=== PATIENT | male | born 1930 | race Caucasian/White ===

== ENCOUNTER → 2016-07-28 | Outpatient (CLI) | payer MEDICARE, BC ==
[2016-07-28 08:46] LABS: Appearance,Urine Clear (Clear); Bilirubin,Urine Negative (Negative); Glucose,Urine (UA) 1+ (Negative); Ketones,Urine Negative (Negative); Leukocyte Esterase,Urine Negative (Negative); Nitrite,Urine Negative (Negative); PH, Urine 5.5 (5.0-8.0); Protein,Urine Negative (Negative); UA Billing (MACRO vs. MICRO) CHEM; Urobilinogen,Urine <2.0 mg/dL (<2.0)
[2016-07-28 08:47] LABS: Basophils % (A) 0 %; CH 31.6; CHCM 33.6; Eosinophils # (A) 0.2 k/uL (0-0.7); Eosinophils % (A) 3 %; HCT 45.4 % (39.0-53.0); HDW 2.93; HGB 14.8 gm/dL (13.0-17.5); Luc # (Auto) 0.18; Luc % (Auto) 2; Lymphocytes # (A) 1.4 k/uL (1.0-4.8); Lymphocytes % (A) 18 %; MCH 30.8 pg (25.0-35.0); MCHC 32.5 g/dL (31.0-37.0); MCV 94.7 fL (80.0-100.0); Mean Platelet Volume 7.7; Monocytes # (A) 0.4 k/uL (0-1.0); Monocytes % (A) 5 %; Neutrophils # (A) 5.3 k/uL (1.3-7.7); Neutrophils % (A) 71 %; RDW 13.6 % (11.5-15.5); WBC 7.5 k/uL (3.8-10.6); WBC (Perox) 7.47
[2016-07-28 12:43] LABS: Anion Gap 9 mmol/L; Blood Urea Nitrogen 22 mg/dL (9-20); Calcium 9.2 mg/dL (8.4-10.2); Carbon Dioxide 30 mmol/L (22-30); Chloride 104 mmol/L (98-107); Glucose 181 mg/dL (74-99); Iron 57 ug/dL (49-181); Magnesium 2.1 mg/dL (1.6-2.3); Non-African American GFR(MDRD) 53 (>60 ml/min/1.73 sqM); Phosphorous 3.4 mg/dL (2.5-4.5); Potassium 4.6 mmol/L (3.5-5.1); Sodium 143 mmol/L (137-145); Uric Acid 7.3 mg/dL (3.5-8.5)
[2016-07-28 12:52] LABS: % Iron Saturation 21.3 % (20-50); Total Iron Binding Capacity 268 ug/dL (261-462)
== END | disposition home or self-care (01) ==
LOC: LABWHC1 07:55
PROVIDERS: ATTEND Internal Medicine Nephrology
DX: N18.3 Chronic kidney disease, stage 3 (moderate) (principal); D64.9 Anemia, unspecified; E55.9 Vitamin D deficiency, unspecified; E21.3 Hyperparathyroidism, unspecified; E83.39 Other disorders of phosphorus metabolism; M10.9 Gout, unspecified; R80.9 Proteinuria, unspecified
CPT/HCPCS: 36415; 80048; 81003; 82306; 82728; 83540; 83550; 83735; 83970; 84100; 84550; 85025

== ENCOUNTER → 2016-11-23 | Outpatient (CLI) | payer MEDICARE, BC ==
[2016-11-23 09:00] LABS: Appearance,Urine Clear (Clear); Bilirubin,Urine Negative (Negative); Glucose,Urine (UA) Negative (Negative); Ketones,Urine Negative (Negative); Leukocyte Esterase,Urine Negative (Negative); Nitrite,Urine Negative (Negative); Protein,Urine Negative (Negative); Specific Gravity,Urine 1.011 (1.001-1.035); UA Billing (MACRO vs. MICRO) CHEM; Urobilinogen,Urine <2.0 mg/dL (<2.0)
[2016-11-23 09:06] LABS: Basophils % (A) 0 %; CHCM 34.7; Eosinophils # (A) 0.3 k/uL (0-0.7); Eosinophils % (A) 4 %; HCT 43.6 % (39.0-53.0); HDW 2.92; HGB 14.5 gm/dL (13.0-17.5); Luc # (Auto) 0.18; Luc % (Auto) 3; Lymphocytes # (A) 1.2 k/uL (1.0-4.8); Lymphocytes % (A) 19 %; MCH 30.9 pg (25.0-35.0); MCHC 33.3 g/dL (31.0-37.0); MCV 92.7 fL (80.0-100.0); Mean Platelet Volume 7.4; Monocytes # (A) 0.4 k/uL (0-1.0); Monocytes % (A) 6 %; Neutrophils # (A) 4.4 k/uL (1.3-7.7); Neutrophils % (A) 68 %; RDW 13.9 % (11.5-15.5); WBC 6.4 k/uL (3.8-10.6); WBC (Perox) 6.61
[2016-11-23 09:18] LABS: Anion Gap 9 mmol/L; Blood Urea Nitrogen 23 mg/dL (9-20); Calcium 9.1 mg/dL (8.4-10.2); Carbon Dioxide 28 mmol/L (22-30); Chloride 108 mmol/L (98-107); Glucose 125 mg/dL (74-99); Iron 50 ug/dL (49-181); Magnesium 2.2 mg/dL (1.6-2.3); Non-African American GFR(MDRD) 53 (>60 ml/min/1.73 sqM); Phosphorous 3.7 mg/dL (2.5-4.5); Potassium 4.5 mmol/L (3.5-5.1); Sodium 145 mmol/L (137-145)
[2016-11-23 09:30] LABS: % Iron Saturation 19.3 % (20-50); Total Iron Binding Capacity 259 ug/dL (261-462)
[2016-11-23 10:31] LABS: Hepatitis B Surface Ag Index 0.05
[2016-11-23 10:37] LABS: Hepatitis B Core IgM Index 0.01
[2016-11-23 10:48] LABS: Hepatitis C Virus IgG Ab Negative (Negative); Hepatitis C Virus IgG Index 0.05
[2016-11-23 16:25] LABS: ANA w/Reflex to Titer NEGATIVE (NEGATIVE)
[2016-11-24 05:31] LABS: Complement Total (CH50) 205 CAE (54-144)
[2016-11-24 12:22] LABS: Free Kappa Lt Chain Qnt, Serum 2.35 mg/dL (0.33 - 1.94); Kappa/Lambda Light Chain Ratio 0.31 (0.26 - 1.65)
[2016-11-24 14:50] LABS: C-ANCA <1:20 Titer (<1:20); P-ANCA <1:20 Titer (<1:20)
[2016-11-25 16:11] LABS: Mis test requested (Non-blood) Ur Prot Electrophor
== END | disposition home or self-care (01) ==
LOC: LABWHC1 08:13
PROVIDERS: ATTEND Nurse Practitioner Family
DX: N18.3 Chronic kidney disease, stage 3 (moderate) (principal); R80.9 Proteinuria, unspecified; M10.9 Gout, unspecified; N39.0 Urinary tract infection, site not specified; R53.83 Other fatigue; D64.9 Anemia, unspecified; E55.9 Vitamin D deficiency, unspecified; E21.3 Hyperparathyroidism, unspecified
CPT/HCPCS: 36415; 80048; 80074; 81003; 81050; 82306; 82728; 83516; 83540; 83550; 83735; 83883; 83970; 84100; 84156; 84166; 84550; 85025; 86038; 86160; 86162; 86225; 86255; 86334

== ENCOUNTER → 2017-01-31 | Outpatient (CLI) | payer MEDICARE, BC ==
--- NOTE | 2017-01-31 12:22 | XR ---
EXAMINATION TYPE: XR bone survey complete DATE OF EXAM: 01/31/2017 COMPARISON: Chest x-ray 05/29/2015 HISTORY: Monoclonal gammopathy, Z 71.3 Frontal views of the proximal upper and lower extremities, 2 views of the calvarium, frontal view of the chest, 2 views of the spine, frontal view of the pelvis submitted on a total of 16 images Extensive degenerative disc changes are present within the lumbar spine, vacuum phenomenon present at L4-5 and L2-3 with endplate sclerosis especially at L2-3, dextroscoliosis centered at L2-3. Bone min eralization is reduced. Postop changes noted to the proximal left tibia, there are vascular calcifica tions noted incidentally, osteoarthritic changes are present within the knees. High riding left shoul miguel angel suggest chronic rotator cuff tear. Pacemaker is in place. There is a hiatal hernia, retrocardiac air-fluid level is noted. Spinal curvature noted. Pacemaker leads within the right atrium and ventric le. There are atherosclerotic calcifications in the distribution of the carotid arteries. Degenerativ e disc changes are also present within the cervical spine, anterolisthesis grade 1 C4-5. Cardiac enla rgement may be due to rotation. No punched-out lesions to suggest multiple myeloma. IMPRESSION: Bone survey shows osteopenia but no punched-out lesions to suggest multiple myeloma are e vident. Additional findings above.
== END | disposition home or self-care (01) ==
LOC: RADXRMAIN 08:17
PROVIDERS: ATTEND Internal Medicine Hematology & Oncology
DX: M85.80 Other specified disorders of bone density and structure, unspecified site (principal); D47.2 Monoclonal gammopathy; Z71.3 Dietary counseling and surveillance
CPT/HCPCS: 77075

== ENCOUNTER → 2017-06-07 | Outpatient (CLI) | payer MEDICARE, BC ==
--- NOTE | 2017-06-07 14:04 | NM ---
EXAMINATION TYPE: NM bone scan whole body DATE OF EXAM: 06/07/2017 COMPARISON: Bone survey 01/31/2017 HISTORY: Prostate cancer Delayed whole-body scanning was performed following the injection of 26.2 mCi Tc 99m MDP. Images acq uired 3 hours post injection. FINDINGS: Scoliotic curvature in the lumbar spine is noted as on plain film, uptake at the disc space of L2-3 l ikely due to degenerative change as L4-5. Soft tissue uptake is within normal limits. Uptake within t he wrists, knees, feet, shoulders is likely degenerative. Large amount of bladder uptake may be due t o outlet obstruction. Small focus of mild uptake of the left frontal calvarium is indeterminate. IMPRESSION: Findings thought likely to be degenerative. Indeterminate focus of uptake left frontal calvarium, fol low-up suggested. Additional findings above.
== END | disposition home or self-care (01) ==
LOC: RADNMMAIN 09:58
PROVIDERS: ATTEND Urology
DX: C61 Malignant neoplasm of prostate (principal); Z88.1 Allergy status to other antibiotic agents; Z88.8 Allergy status to other drugs, medicaments and biological substances
CPT/HCPCS: 78306; A9503

== ENCOUNTER → 2017-10-24 | Outpatient (CLI) | payer MEDICARE, BC ==
[2017-10-24 09:38] LABS: Calcium 9.1 mg/dL (8.4-10.2); Potassium 4.2 mmol/L (3.5-5.1)
== END | disposition home or self-care (01) ==
LOC: LABWHC1 08:46
PROVIDERS: ATTEND Nurse Practitioner Family
DX: N18.3 Chronic kidney disease, stage 3 (moderate) (principal)
CPT/HCPCS: 36415; 80048

== ENCOUNTER → 2017-12-13 | Outpatient (CLI) | payer MEDICARE, BC ==
[2017-12-13 08:42] LABS: Basophils % (A) 0 %; Eosinophils # (A) 0.3 k/uL (0-0.7); Eosinophils % (A) 4 %; HCT 41.4 % (39.0-53.0); Lymphocytes # (A) 1.2 k/uL (1.0-4.8); Lymphocytes % (A) 17 %; MCH 31.7 pg (25.0-35.0); MCHC 33.7 g/dL (31.0-37.0); MCV 93.9 fL (80.0-100.0); Mean Platelet Volume 8.2; Monocytes # (A) 0.4 k/uL (0-1.0); Monocytes % (A) 5 %; Neutrophils # (A) 4.9 k/uL (1.3-7.7); Neutrophils % (A) 71 %; Platelet Count 131 k/uL (150-450); RBC 4.41 m/uL (4.30-5.90); RDW 14.5 % (11.5-15.5); WBC 6.9 k/uL (3.8-10.6)
[2017-12-13 09:02] LABS: Appearance,Urine Clear (Clear); Bilirubin,Urine Negative (Negative); Blood,Urine Negative (Negative); Color,Urine Yellow; Glucose,Urine (UA) Negative (Negative); Hyaline Casts,Urine 1 /lpf (0-2); Ketones,Urine Negative (Negative); Leukocyte Esterase,Urine Trace (Negative); Mucus,Urine Rare /hpf; Nitrite,Urine Negative (Negative); PH, Urine 5.5 (5.0-8.0); Protein,Urine Negative (Negative); Specific Gravity,Urine 1.012 (1.001-1.035); Squamous Epithelial Cell,Urine <1 /hpf (0-4); Urobilinogen,Urine <2.0 mg/dL (<2.0); WBC,Urine 1 /hpf (0-5)
[2017-12-13 09:28] LABS: Calcium 8.9 mg/dL (8.4-10.2); Magnesium 2.2 mg/dL (1.6-2.3); Potassium 4.7 mmol/L (3.5-5.1); Uric Acid 7.9 mg/dL (3.5-8.5)
[2017-12-13 17:20] LABS: Iron Saturation 14.83 (15.00-50.00)
[2017-12-13 18:30] LABS: Parathyroid Hormone Intact 111.4 pg/mL (14.0-72.0)
== END | disposition home or self-care (01) ==
LOC: LABWHC1 08:02
PROVIDERS: ATTEND Nurse Practitioner Family
DX: R53.83 Other fatigue (principal); N18.3 Chronic kidney disease, stage 3 (moderate); E55.9 Vitamin D deficiency, unspecified; D63.1 Anemia in chronic kidney disease; E11.22 Type 2 diabetes mellitus with diabetic chronic kidney disease; N39.0 Urinary tract infection, site not specified; M10.9 Gout, unspecified; N25.81 Secondary hyperparathyroidism of renal origin
CPT/HCPCS: 36415; 80048; 81001; 82728; 83540; 83550; 83735; 83970; 84100; 84550; 85025

== ENCOUNTER → 2018-01-05 | Outpatient (CLI) | payer MEDICARE, BC ==
--- NOTE | 2018-01-05 11:38 | US ---
EXAMINATION TYPE: US kidneys/renal and bladder DATE OF EXAM: 01/05/2018 COMPARISON: NONE CLINICAL HISTORY: N18.3 Chronic kidney disease stage 3. Pt age 87, large body habitus , bladder is so overly distended extends to umbilical no color flow not related to aorta EXAM MEASUREMENTS: Right Kidney: 9.2 x 4.2 x 5.3 cm Left Kidney: 10.4 x 5.5 x 4.7 cm Post Void Residual Volume: 939 mL Right Kidney: thin cortex, Left Kidney: thin cortex, lower pole cyst 0.4 x 0.6 x 0.5 Bladder: overly distended, even after post void Bilateral Jets seen: no Normal Post Void Residual: no There is no evidence for hydronephrosis at this point in time. No nephrolithiasis is seen. No solid masses are identified. The urinary bladder is anechoic. Bilateral ureteral jets are seen. IMPRESSION: Cortical thinning with small cyst left kidney.
== END | disposition home or self-care (01) ==
LOC: RADUSWWP 10:18
PROVIDERS: ATTEND Internal Medicine Nephrology
DX: N28.1 Cyst of kidney, acquired (principal); N18.3 Chronic kidney disease, stage 3 (moderate)
CPT/HCPCS: 76770

== ENCOUNTER → 2018-05-17 | Outpatient (CLI) | payer MEDICARE, BC ==
[2018-05-17 16:06] LABS: Albumin 3.7 g/dL (3.80-4.90); Albumin/Globulin Ratio 2.85 (1.20-2.10); Anion Gap 6.6 mmol/L (4.00-12.00); Calcium 8.9 mg/dL (8.7-10.3); Carbon Dioxide 28.4 mmol/L (21.6-31.8); Globulin 1.3 g/dL (2.1-3.7); Potassium 4.6 mmol/L (3.5-5.5); Total Bilirubin 0.4 mg/dL (0.2-1.2)
== END ==
LOC: LABWHC1 09:52
PROVIDERS: ATTEND Internal Medicine
DX: E11.9 Type 2 diabetes mellitus without complications (principal); I10 Essential (primary) hypertension; E78.5 Hyperlipidemia, unspecified
CPT/HCPCS: 36415; 80053; 80061

== ENCOUNTER 2018-07-31 16:12 | Emergency (ER) | payer MEDICARE, BC ==
[2018-07-31 16:23] VITALS: RESP 18
[2018-07-31] MEDS ORDERED: LIDOCAINE 1% INJ 10MG/ML (20 ML MDV) SQ STA (17:18)
[2018-07-31] MEDS ORDERED: DIPH,PERTUS(ACELL)TETVAC-LF 0.5 ML VIAL IM ONE (17:18)
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
--- NOTE | 2018-07-31 18:05 | XR ---
Left knee 4 views. History pain. Comparison 08/30/2012. FINDINGS: There are 2 screws fixing the proximal tibia. I see no fracture nor dislocation. There is spurring on the patella. There is small knee joint effusion. There is mild spurring of the femoral and tibial co ndyles. IMPRESSION: Mild degenerative hypertrophic changes. No fracture seen. No change compared to old exam.
--- NOTE | 2018-07-31 18:11 | CT ---
EXAMINATION TYPE: CT brain stephy jimenez con DATE OF EXAM: 07/31/2018 COMPARISON: 08/18/2012 HISTORY: Fall injury, facial lacerations CT DLP: 1030 mGycm Automated exposure control for dose reduction was used. TECHNIQUE: CT scan of the head and cervical spine are performed without contrast. FINDINGS: There is cerebral cortical atrophy. There is no mass effect nor midline shift. There is n o sign of intracranial hemorrhage. The calvarium is intact. There is extensive mucosal thickening in the ethmoid and sphenoid sinuses. There is mucus retention cysts in the maxillary sinuses. Cervical vertebra show some straightening. There is degenerative disc space narrowing at C5-6 C6-7 wi th spur formation. The skull base is intact. IMPRESSION: Cerebral atrophy. No acute intracranial abnormality. Sinusitis. Brain is unchanged compared to old ex am. Sinusitis appears increased. Spondylotic changes in the cervical spine. No fracture. No change.
--- NOTE | 2018-07-31 18:18 | CT ---
EXAMINATION TYPE: CT orbits wo con DATE OF EXAM: 07/31/2018 COMPARISON: None HISTORY: Facial lacerations, fall injury CT DLP: 1030 mGycm Automated exposure control for dose reduction was used. FINDINGS: The orbital margins are intact. There is no evidence of a blowout fracture. There is moderate mucosal thickening in the ethmoid and sphenoid sinuses. There is mucous retention cysts and fluid in the max illary sinuses. Zygomatic arches are intact. There is no evidence of retro-orbital mass. There is sof t tissue swelling anterior to the left orbit and left zygoma. The zygomatic arches are intact. There is nondisplaced fracture of the nasal bone. IMPRESSION: THERE IS ANTERIOR LEFT SIDE SOFT TISSUE SWELLING AT THE ZYGOMA AND MAXILLA AND ORBIT. NASAL BONE FRAC TURE. INCREASED DENSITY IN THE NASOPHARYNX CONSISTENT WITH DEBRIS AND BLOOD CLOT. THERE IS EVIDENCE O F PRE-EXISTING SINUSITIS. NO FRACTURE SEEN OF THE ORBITS AND MAXILLA.
[2018-07-31 19:54] VITALS: BP 136/74; PULSE 81; TEMP 98.5
--- NOTE | 2018-08-02 04:18 | CDI ---
Documentation Clarification OP Dear Juan Miguel HOLM, PAC Please provide laceration location & length. Thank you, Stephen Guerrero [employer] If you have any questions, please contact [employer] at [phone] [facility]
--- NOTE | 2018-08-14 21:39 | ED ---
Disposition Clinical Impression: Fall, Laceration, Nasal bone fracture Disposition: HOME SELF-CARE Condition: Stable Instructions (If sedation given, give patient instructions): Fall Prevention for Older Adults (ED) Additional Instructions: Patient to adhere to previously discussed treatment plan and will take medication(s) as directed. Patient to follow up with PCP in 1-2 days. Patient to return to ED if symptoms do not improve. Please return for suture removal: Hand: 7-10 days Face: 5 days Chest/abdomen: 12-14 days Extremities: 7-10 days Scalp: 7 days Eyebrow: 5-7 days Foot/sole: 12-14 days Please monitor for signs and symptoms of infection including: redness, warmth, drainage, discharge. Please return to ED if these signs or symptoms occur, new signs or symptoms develop or if condition worsens in anyway. Prescriptions: Cephalexin [Keflex] 500 mg PO Q6HR 3 Days #12 cap Is patient prescribed a controlled substance at d/c from ED?: No Referrals: Nicole Cantrell MD [Primary Care Provider] - 1-2 days Rafy Figueroa MD [STAFF PHYSICIAN] - 1-2 days Procedures - Laceration Laceration #1 Consent Obtained: verbal consent Indication: laceration Site: other (L orbit) Size (cm): 5 Description: linear Depth: simple, single layer Anesthetic Used: lidocaine 1% Anesthesia Technique: local infiltration Amount (mls): 6 Pre-repair: wound explored, irrigated extensively (1L NS ) Type of Sutures: nylon Size of Sutures: 5-0 Number of Sutures: 8 Patient Tolerated Procedure: well, no complications
== END 2018-07-31 20:06 | disposition home or self-care (01) ==
LOC: EC 16:12
DX: S02.2XXA Fracture of nasal bones, initial encounter for closed fracture (principal); S05.42XA Penetrating wound of orbit with or without foreign body, left eye, initial encounter; M25.462 Effusion, left knee; K21.9 Gastro-esophageal reflux disease without esophagitis; E78.5 Hyperlipidemia, unspecified; E11.22 Type 2 diabetes mellitus with diabetic chronic kidney disease; N18.3 Chronic kidney disease, stage 3 (moderate); N42.9 Disorder of prostate, unspecified; G47.30 Sleep apnea, unspecified; Z87.39 Personal history of other diseases of the musculoskeletal system and connective tissue; Z95.0 Presence of cardiac pacemaker; Z98.49 Cataract extraction status, unspecified eye; Z79.4 Long term (current) use of insulin; Z79.890 Hormone replacement therapy; Z79.899 Other long term (current) drug therapy; Z91.018 Allergy to other foods; Z88.6 Allergy status to analgesic agent; Z88.1 Allergy status to other antibiotic agents; Z23 Encounter for immunization; W00.0XXA Fall on same level due to ice and snow, initial encounter; Y92.014 Private driveway to single-family (private) house as the place of occurrence of the external cause; Y93.29 Activity, other involving ice and snow
CPT/HCPCS: 99284; 12013; 90471; 73564; 72125; 70450; 70480; 90715; J2001

== ENCOUNTER → 2018-08-10 | Outpatient (CLI) | payer MEDICARE, BC ==
[2018-08-10 17:07] LABS: Albumin 3.5 g/dL (3.80-4.90); Albumin/Globulin Ratio 2.33 (1.60-3.17); Anion Gap 10.7 mmol/L (4.00-12.00); Calcium 8.9 mg/dL (8.7-10.3); Carbon Dioxide 25.3 mmol/L (21.6-31.8); Globulin 1.5 g/dL (1.6-3.3); LDL Cholesterol,Calculated 81.4 mg/dL (0.0-131.0); Potassium 4.7 mmol/L (3.5-5.5); Total Bilirubin 0.5 mg/dL (0.2-1.2); VLDL Calculation 19.6 mg/dL (5.00-40.00)
[2018-08-10 19:14] LABS: Hemoglobin A1C 6.3 % (4.0-6.0)
== END | disposition home or self-care (01) ==
LOC: LABWHC1 08:30
PROVIDERS: ATTEND Internal Medicine
DX: E11.9 Type 2 diabetes mellitus without complications (principal); I12.9 Hypertensive chronic kidney disease with stage 1 through stage 4 chronic kidney disease, or unspecified chronic kidney disease; N18.9 Chronic kidney disease, unspecified; E78.5 Hyperlipidemia, unspecified
CPT/HCPCS: 36415; 80053; 80061; 83036

== ENCOUNTER → 2020-05-07 | Outpatient (CLI) | payer MEDICARE, BC ==
[2020-05-07 09:17] LABS: Basophils % (A) 0 %; Eosinophils # (A) 0.2 k/uL (0-0.7); Eosinophils % (A) 4 %; HCT 38.9 % (39.0-53.0); HGB 12.7 gm/dL (13.0-17.5); Lymphocytes # (A) 1.2 k/uL (1.0-4.8); Lymphocytes % (A) 22 %; MCH 30.7 pg (25.0-35.0); MCHC 32.5 g/dL (31.0-37.0); MCV 94.4 fL (80.0-100.0); Mean Platelet Volume 8.8; Monocytes # (A) 0.3 k/uL (0-1.0); Monocytes % (A) 6 %; Neutrophils # (A) 3.8 k/uL (1.3-7.7); Neutrophils % (A) 66 %; Platelet Count 139 k/uL (150-450); RBC 4.12 m/uL (4.30-5.90); RDW 13.8 % (11.5-15.5); WBC 5.7 k/uL (3.8-10.6)
[2020-05-07 15:32] LABS: African American GFR (CKD) 56.9 (60.0-200.0); Albumin 3.7 g/dL (3.80-4.90); Albumin/Globulin Ratio 2.31 (1.60-3.17); Anion Gap 8.3 mmol/L (4.00-12.00); BUN/Creat Ratio 23.08 Ratio (12.00-20.00); Calcium 9.1 mg/dL (8.7-10.3); Carbon Dioxide 26.7 mmol/L (21.6-31.8); Chol/HDL Ratio 3.73; Globulin 1.6 g/dL (1.6-3.3); LDL Cholesterol,Calculated 81.6 mg/dL (0.0-131.0); Non-African American GFR(CKD) 49.1 (60.0-200.0); Potassium 4.5 mmol/L (3.5-5.5); Total Bilirubin 0.4 mg/dL (0.3-1.2); Total Protein 5.3 g/dL (6.2-8.2); VLDL Calculation 27.4 mg/dL (5.00-40.00)
[2020-05-07 19:26] LABS: Hemoglobin A1C 6.1 % (4.0-6.0)
== END | disposition home or self-care (01) ==
LOC: LABWHC1 07:44
PROVIDERS: ATTEND Internal Medicine
DX: E11.9 Type 2 diabetes mellitus without complications (principal); I12.9 Hypertensive chronic kidney disease with stage 1 through stage 4 chronic kidney disease, or unspecified chronic kidney disease; N18.9 Chronic kidney disease, unspecified
CPT/HCPCS: 36415; 80053; 80061; 83036; 85025

== ENCOUNTER → 2020-05-30 | Outpatient (CLI) | payer MEDICARE, BC ==
[2020-05-31 00:40] LABS: Prostate Specific Antigen 0.2 ng/mL (0.0-6.5)
== END | disposition home or self-care (01) ==
LOC: LABWHC1 15:28
PROVIDERS: ATTEND Urology
DX: C61 Malignant neoplasm of prostate (principal)
CPT/HCPCS: 36415; 84153; 84403

== ENCOUNTER 2020-06-14 15:03 | Observation (INO) | payer MEDICARE, BC ==
[2020-06-14] MEDS ORDERED: SODIUM CHLORIDE 0.9% 500 ML 500 ML IV STA (15:24)
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
[2020-06-14 15:48] LABS: Basophils # (A) 0.1 k/uL (0-0.2); Basophils % (A) 1 %; Eosinophils # (A) 0.2 k/uL (0-0.7); Eosinophils % (A) 3 %; HCT 38.3 % (39.0-53.0); HGB 13.3 gm/dL (13.0-17.5); Lymphocytes # (A) 1.6 k/uL (1.0-4.8); Lymphocytes % (A) 24 %; MCH 31.9 pg (25.0-35.0); MCHC 34.6 g/dL (31.0-37.0); MCV 92.3 fL (80.0-100.0); Mean Platelet Volume 8.2; Monocytes # (A) 0.3 k/uL (0-1.0); Monocytes % (A) 5 %; Neutrophils # (A) 4.1 k/uL (1.3-7.7); Neutrophils % (A) 64 %; Platelet Count 139 k/uL (150-450); RBC 4.15 m/uL (4.30-5.90); RDW 13.1 % (11.5-15.5); WBC 6.5 k/uL (3.8-10.6)
--- NOTE | 2020-06-14 15:54 | XR ---
EXAMINATION TYPE: XR chest 2V DATE OF EXAM: 06/14/2020 COMPARISON: 01/03/2018 HISTORY: Weakness TECHNIQUE: FINDINGS: There is poor inspiration with coarse interstitial density in the lower lobes. There is no obvious heart failure. There is left axillary pacemaker. There are chest leads. Bony thorax appears i ntact. There is some malalignment of the right AC joint that could relate to an old injury. IMPRESSION: Coarse density and subsegmental atelectasis at the lung bases. Hiatal hernia. Cardiomegal y. No obvious heart failure. Chest not significantly different than old exam.
[2020-06-14 15:57] LABS: INR 0.9 (<1.2); Partial Thromboplastin Time 22.2 sec (22.0-30.0); Prothrombin Time 9.8 sec (9.0-12.0)
[2020-06-14 16:02] LABS: Albumin 3.5 g/dL (3.5-5.0); Calcium 9.2 mg/dL (8.4-10.2); Magnesium 2.4 mg/dL (1.6-2.3); Potassium 4.5 mmol/L (3.5-5.1); Total Bilirubin 0.5 mg/dL (0.2-1.3); Total Protein 5.8 g/dL (6.3-8.2)
--- NOTE | 2020-06-14 16:25 | CT ---
EXAMINATION TYPE: CT brain wo con DATE OF EXAM: 06/14/2020 COMPARISON: 07/31/2018 HISTORY: weakness CT DLP: 1047.4 mGycm Automated exposure control for dose reduction was used. There is cerebral atrophy. There is no mass effect nor midline shift. There is no sign of intracrania l hemorrhage. Calvarium is intact. The skull base is intact. There is minimal mucosal thickening in t he ethmoid sinuses. There is mucosal thickening with mucus retention cysts in the maxillary sinuses. There is normal aeration of the temporal bones. IMPRESSION: Cerebral atrophy. No acute intracranial abnormality. Sinusitis. This is not changed compared to old exam.
[2020-06-14] MEDS ORDERED: ASPIRIN 325 MG TAB PO STA (16:32)
[2020-06-14 16:40] LABS: Appearance,Urine Clear (Clear); Bacteria,Urine Rare /hpf; Bilirubin,Urine Negative (Negative); Blood,Urine Negative (Negative); Color,Urine Light Yellow; Glucose,Urine (UA) Negative (Negative); Ketones,Urine Negative (Negative); Leukocyte Esterase,Urine Trace (Negative); Mucus,Urine Rare /hpf; Nitrite,Urine Negative (Negative); PH, Urine 6.5 (5.0-8.0); Protein,Urine Negative (Negative); RBC,Urine <1 /hpf (0-5); Specific Gravity,Urine 1.011 (1.001-1.035); Squamous Epithelial Cell,Urine <1 /hpf (0-4); Urobilinogen,Urine <2.0 mg/dL (<2.0); WBC,Urine 1 /hpf (0-5)
[2020-06-14] MEDS ORDERED: ACETAMINOPHEN TAB 325 MG TAB PO PRN (17:06)
[2020-06-14] MEDS ORDERED: NALOXONE 0.4 MG/ML 1 ML VIAL IV PRN (17:06)
[2020-06-14] MEDS ORDERED: ONDANSETRON 4 MG/2 ML VIAL IVP PRN (17:06)
[2020-06-14] MEDS: SODIUM CHLORIDE 0.9% 1,000 ML IV SCH (17:22)
[2020-06-14] MEDS: FUROSEMIDE 40 MG TAB PO SCH (17:22)
--- NOTE | 2020-06-14 18:11 | US ---
EXAMINATION TYPE: US carotid duplex BILAT DATE OF EXAM: 06/14/2020 COMPARISON: NONE CLINICAL HISTORY: tia. Difficult exam as patient had a hard time turning his head to the side and pat ient heavy breathing. Tortuous vessels EXAM MEASUREMENTS: RIGHT: Peak Systolic Velocity (PSV) cm/sec ----- Right CCA: 52.0 ----- Right ICA: 63.8 ----- Right ECA: 69.0 ICA/CCA ratio: 1.2 RIGHT: End Diastole cm/sec ----- Right CCA: 12.9 ----- Right ICA: 16.8 ----- Right ECA: 6.4 LEFT: Peak Systolic Velocity (PSV) cm/sec ----- Left CCA: 45.5 ----- Left ICA: 55.6 ----- Left ECA: 62.8 ICA/CCA ratio: 1.2 LEFT: End Diastole cm/sec ----- Left CCA: 12.9 ----- Left ICA: 13.6 ----- Left ECA: 0.0 VERTEBRALS (direction of flow): Right Vertebral: Antegrade Left Vertebral: Antegrade Rhythm: Normal Moderate/severe amount of plaque visualized bilaterally. No elevated velocities. Tortuous vessels IMPRESSION: There is antegrade flow in the vertebral arteries. The images and measurements suggest up to 50% sten osis in both internal carotid arteries. Criteria for Assigning % of Stenosis / Diameter reduction (Estimation based on the indirect measurements of the internal carotid artery velocities (ICA PSV). 1. Normal (no stenosis)=ICA PSV < 125 cm/s: ratio < 2.0: ICA EDV<40 cm/s. 2. Less than 50% stenosis=ICA PSV < 125 cm/s: ratio < 2.0: ICA EDV<40 cm/s. 3. 50 to 69% stenosis=ICA PSV of 125 to 230 cm/s: ration 2.0 ? 4.0: ICA EDV 40-100 cm/s. 4. Greater than 70% stenosis to near occlusion= ICA PSV > 230 cm/s: ratio > 4.0: ICA EDV > 100 cm/s. 5. Near occlusion= ICA PSV velocities may be low or undetectable: variable ratio and ICA EDV. 6. Total occlusion=unable to detect flow.
[2020-06-14 19:49] LABS: Glucose,Whole Blood 230 mg/dL (75-99)
[2020-06-14] MEDS: guaiFENesin 600 MG TABLET.ER PO SCH (20:55)
[2020-06-14] MEDS: POTASSIUM CHLORIDE ER 20 MEQ TAB.ER PO SCH (20:55)
[2020-06-14] MEDS: ATORVASTATIN 10 MG TAB PO SCH (20:55)
[2020-06-14] MEDS: INSULIN ASPART (NovoLOG) 100 UNIT/ML VIAL SQ SCH (20:55)
[2020-06-15 06:10] LABS: Glucose,Whole Blood 120 mg/dL (75-99)
[2020-06-15] MEDS: INSULIN ASPART (NovoLOG) 100 UNIT/ML VIAL SQ SCH ×4 (06:54→22:19)
[2020-06-15] MEDS: SODIUM CHLORIDE 0.9% 1,000 ML IV SCH ×2 (06:55→19:30)
[2020-06-15] MEDS: DOXAZOSIN 4 MG TAB PO SCH (08:28)
[2020-06-15] MEDS: METOPROLOL SUCCINATE (ER) 25 MG TAB.ER.24H PO SCH (08:28)
[2020-06-15] MEDS: guaiFENesin 600 MG TABLET.ER PO SCH ×2 (08:28→22:18)
[2020-06-15] MEDS: ASPIRIN 325 MG TAB PO SCH (08:28)
[2020-06-15] MEDS: LORATADINE 10 MG TAB PO SCH (08:28)
[2020-06-15] MEDS: POTASSIUM CHLORIDE ER 20 MEQ TAB.ER PO SCH ×2 (08:28→22:18)
[2020-06-15] MEDS: FUROSEMIDE 40 MG TAB PO SCH (08:28)
[2020-06-15] MEDS: VIT A,C & E-LUTEIN-MINERALS 1 EACH TAB PO SCH (08:29)
[2020-06-15] MEDS: BICALUTAMIDE 50 MG TAB PO SCH (08:29)
[2020-06-15] MEDS: INSULN ASP PRT/INSULIN ASPART 100 UNIT/ML 10 ML VIAL SQ SCH ×2 (08:39→17:17)
[2020-06-15 11:18] LABS: Glucose,Whole Blood 109 mg/dL (75-99)
[2020-06-15 16:54] LABS: Glucose,Whole Blood 109 mg/dL (75-99)
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
[2020-06-15] MEDS: ATORVASTATIN 10 MG TAB PO SCH (22:18)
[2020-06-15 22:20] LABS: Glucose,Whole Blood 109 mg/dL (75-99)
[2020-06-16 06:29] LABS: Glucose,Whole Blood 105 mg/dL (75-99)
[2020-06-16] MEDS: INSULIN ASPART (NovoLOG) 100 UNIT/ML VIAL SQ SCH ×3 (06:45→17:14)
[2020-06-16 07:06] LABS: Glucose,Whole Blood 102 mg/dL (75-99)
[2020-06-16] MEDS: ASPIRIN 325 MG TAB PO SCH (08:07)
[2020-06-16] MEDS: LORATADINE 10 MG TAB PO SCH (08:07)
[2020-06-16] MEDS: POTASSIUM CHLORIDE ER 20 MEQ TAB.ER PO SCH (08:07)
[2020-06-16] MEDS: DOXAZOSIN 4 MG TAB PO SCH (08:07)
[2020-06-16] MEDS: VIT A,C & E-LUTEIN-MINERALS 1 EACH TAB PO SCH (08:07)
[2020-06-16] MEDS: guaiFENesin 600 MG TABLET.ER PO SCH (08:07)
[2020-06-16] MEDS: METOPROLOL SUCCINATE (ER) 25 MG TAB.ER.24H PO SCH (08:07)
[2020-06-16] MEDS: BICALUTAMIDE 50 MG TAB PO SCH (08:07)
[2020-06-16] MEDS: INSULN ASP PRT/INSULIN ASPART 100 UNIT/ML 10 ML VIAL SQ SCH ×2 (08:08→17:14)
[2020-06-16 08:11] LABS: Basophils % (A) 0 %; Eosinophils # (A) 0.3 k/uL (0-0.7); Eosinophils % (A) 4 %; HGB 12.8 gm/dL (13.0-17.5); Lymphocytes # (A) 1.2 k/uL (1.0-4.8); Lymphocytes % (A) 15 %; MCH 31.7 pg (25.0-35.0); MCHC 33.7 g/dL (31.0-37.0); MCV 94.1 fL (80.0-100.0); Mean Platelet Volume 8.1; Monocytes # (A) 0.4 k/uL (0-1.0); Monocytes % (A) 5 %; Neutrophils # (A) 6.2 k/uL (1.3-7.7); Neutrophils % (A) 74 %; Platelet Count 150 k/uL (150-450); RBC 4.04 m/uL (4.30-5.90); RDW 13.4 % (11.5-15.5); WBC 8.3 k/uL (3.8-10.6)
[2020-06-16 08:32] LABS: Calcium 8.6 mg/dL (8.4-10.2); Potassium 4.4 mmol/L (3.5-5.1)
--- NOTE | 2020-06-16 09:43 | CONS ---
CONSULTATION Mr. De Los Santos is an 89-year-old male with a history of permanent pacemaker implantation, history of diabetes and hypertension as well as hyperlipidemia, who presented with a dizziness episode. These symptoms started on Tuesday. He got up, felt a little bit dizzy. Subsequently after he sat down to eat, the dizziness persisted. He came into the emergency room and subsequently admitted. The patient denies any symptoms of chest discomfort. He denies any palpitations. He denies any peripheral edema. He has chronic mild exertional dyspnea on exertion, unchanged. His activity is limited. He has no prior cardiac history of CHF or myocardial infarction. 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 He has underwent an echocardiogram in January of 2018 that revealed a preserved left ventricular size and systolic function with moderate mitral and mild to moderate tricuspid regurgitation. His coronary risk factors are remarkable for the hypertension, hyperlipidemia, diabetes. His medications include Lasix 40 mg twice a day, calcium, simvastatin 10 mg daily, metoprolol succinate 25 mg daily, insulin, and vitamin D. REVIEW OF SYSTEMS: RESPIRATORY SYSTEM: He has no recent wheezing or cough. He has history of dyspnea on exertion. GI SYSTEM: He has mild nausea, but no recent GI bleeding. SYSTEM: No dysuria or hematuria. NERVOUS SYSTEM: No history of stroke or seizure. PHYSICAL EXAMINATION: He is an 89-year-old male, alert, oriented, in no apparent distress. Blood pressure running in the one teens with the heart rate in the 60s. HEAD: Normocephalic. EYES: Sclerae anicteric. NECK: Good carotid upstroke. No bruit. LUNGS: Clear to auscultation. HEART: Regular rate and rhythm. S1, S2. No S3 with systolic murmur. No diastolic murmur. No rub. ABDOMEN: Soft, obese, nontender. Positive bowel sounds. No organomegaly. EXTREMITIES: No edema. Intact distal pulses. LAB DATA: Lab data revealed BUN and creatinine of 31 and 1.28, hemoglobin of 12.8. His TSH 3.36. Troponin less than 0.012. Hemoglobin A1c of 6. He is negative for coronavirus PCR. His EKG revealed a sinus mechanism with dual chamber pacer activity. His carotid duplex revealed calcification, but no evidence of high-grade stenosis. His brain CT shows no acute changes. His chest x-ray shows no acute infiltrate. IMPRESSION: 1. Symptoms of dizziness of unclear etiology. No clear evidence to suggest arrhythmia, could be related to his blood pressure or mild dehydration. 2. Questionable facial drooping, although not noted at this time. 3. Permanent pacemaker implantation with no evidence of pacemaker malfunction on the telemetry. 4. History of diabetes. 5. Hypertension. 6. Hyperlipidemia. 7. Chronic kidney disease. RECOMMENDATION: From the cardiac standpoint, will interrogate the pacemaker. Rule out any evidence of pacemaker malfunction. I will obtain echocardiogram with Doppler. Will follow his blood pressure and if his pressure remains on the low side, then I will cut down his beta raffi. Will depend on his progress, further recommendation will be made. Thank you for this consult. We will follow with you. JONAH / PETRONAN: [id number] /
--- NOTE | 2020-06-16 10:35 | ECHOF ---
Referral Reason:DIzzy/tia MEASUREMENTS -------- HEIGHT: 157.5 cm WEIGHT: 96.2 kg BP: 112/58 RVIDd: 3.8 cm (< 3.3) IVSd: 1.6 cm (0.6 - 1.1) LVIDd: 4.2 cm (3.9 - 5.3) LVPWd: 1.5 cm (0.6 - 1.1) IVSs: 1.8 cm LVIDs: 3.5 cm LVPWs: 1.8 cm LA Diam: 4.2 cm (2.7 - 3.8) Ao Diam: 3.0 cm (2.0 - 3.7) AV Cusp: 1.6 cm (1.5 - 2.6) MV EXCURSION: 19.089 mm (> 18.000) MV EF SLOPE: 84 mm/s (70 - 150) EPSS: 0.3 cm MV E Kenny: 0.69 m/s MV DecT: 326 ms MV A Kenny: 1.13 m/s MV E/A Ratio: 0.61 RAP: 5.00 mmHg RVSP: 41.20 mmHg FINDINGS -------- Paced rhythm. This was a technically adequate study. The left ventricular size is normal. There is moderate concentric left ventricular hypertrophy. O verall left ventricular systolic function is low-normal with, an EF between 50 - 55 %. The right ventricle is mildly enlarged. The left atrium is mildly dilated. The right atrial size is normal. There is mild aortic valve sclerosis. There is no evidence of aortic regurgitation. Mild mitral regurgitation is present. Mild tricuspid regurgitation present. There is mild pulmonary hypertension. The right ventricular systolic pressure, as measured by Doppler, is 41.20mmHg. Trace/mild (physiologic) pulmonic regurgitation. The aortic root size is normal. There is no pericardial effusion. CONCLUSIONS -------- 1. Paced rhythm. 2. The left ventricular size is normal. 3. There is moderate concentric left ventricular hypertrophy. 4. Overall left ventricular systolic function is low-normal with, an EF between 50 - 55 %. 5. The right ventricle is mildly enlarged. 6. The left atrium is mildly dilated. 7. The right atrial size is normal. 8. There is mild aortic valve sclerosis. 9. Mild mitral regurgitation is present. 10. Mild tricuspid regurgitation present. 11. There is mild pulmonary hypertension. 12. The right ventricular systolic pressure, as measured by Doppler, is 41.20mmHg. 13. Trace/mild (physiologic) pulmonic regurgitation. 14. The aortic root size is normal. 15. There is no pericardial effusion. ELECTRONIC MUSICAL INSTRUMENT REPAIRER: Harriet Matute RDCS
[2020-06-16 11:54] LABS: Glucose,Whole Blood 84 mg/dL (75-99)
[2020-06-16] MEDS: SODIUM CHLORIDE 0.9% 1,000 ML IV SCH (12:10)
--- NOTE | 2020-06-16 12:56 | P.PN ---
Subjective Patient is a 89-year-old male with a known history of hypertension, hyperlipidemia, GERD, osteoarthritis, obstructive sleep apnea not on CPAP at [facility], iron deficiency anemia and recurrent iron IV infusions, history of permanent pacemaker placement and other multiple medical problems was brought to the hospital due to dizziness and lightheadedness. Patient states that he woke up in the morning at around 8 AM and has been having feeling dizzy. Patient went to kitchen and was able to fix his breakfast and has been having nausea and worsening dizziness. Patient informed his daughter and was brought to the hospital. Otherwise denied any fever or chills. No cough or sputum production. No nausea vomiting or abdominal pain or diarrhea. No dysuria or hematuria. Laboratory data showed WBC of 6.5, hemoglobin 13.3 and platelets 139 BUN 36 and creatinine 1.25 Magnesium 2.4, troponin x1 - TSH is 3.360 UA negative for infection Chest x-ray showed coarse density and subsegmental atelectasis in the lung bases. Hiatal hernia. Cardiomegaly no overt heart failure. Not different than previous exam. EKG showed AV dual paced rhythm with prolonged AV conduction. Carotid Doppler showed there is anterograde flow in the vertebral arteries. 50% stenosis in both internal carotid arteries. According to her daughter patient has baseline droopy left eye. Uncertain of the patient had a previous left facial droop. Symptoms improved while in the emergency room and was admitted to the hospital due to possible TIA. 06/16/2020 Neurology will evaluated the patient today patient will undergo pacemaker interrogation. Patient's creatinine at his baseline. Patient was on Lasix which is being held because of hypotension. Patient is not in CHF exacerbation. Echo was obtained which showed moderate concentric left ventricular hypertrophy with normal EF and RVSP of 41 with some mild valvular abnormalities. Patient is still complaining of dizziness there is no clear facial droop that was evident at this time. Constitutional: Denied any fatigue denied any fever. Cardio vascular: denied any chest pain, palpitations Gastrointestinal denied any nausea vomiting Pulmonary: Denied any shortness of breath cough Neurologic denied any new focal deficits All inpatient medications were reviewed and appropriate changes in these medications as dictated in the interval history and assessment and plan. Objective - Vital Signs Vital signs: Vital Signs Temp 97.6 F 06/16/20 08:05 Pulse 69 06/16/20 08:05 Resp 18 06/16/20 08:05 BP 99/58 06/16/20 08:05 Pulse Ox 94 L 06/16/20 08:05 Intake & Output 06/15/20 06/16/20 06/16/20 18:59 06:59 18:59 Intake Total 840 550 240 Output Total 400 Balance 440 550 240 Weight 96.3 kg Intake: IV 600 Sodium Chloride 0.9% 1, 600 000 ml @ 75 mls/hr IV . [id number] [facility] Rx#:[id number] Intake, IV Titration 450 Amount Sodium Chloride 0.9% 1, 450 000 ml @ 75 mls/hr IV . [id number] [facility] Rx#:[id number] Oral 240 100 240 Output: Urine 400 Other: Voiding Method Toilet Toilet Toilet # Voids 4 # Bowel Movements 1 1 - Exam PHYSICAL EXAMINATION: GENERAL: The patient is alert and oriented x3, not in any acute distress. Obese HEENT: Pupils are round and equally reacting to light. EOMI. No scleral icterus. No conjunctival pallor. Normocephalic, atraumatic. No pharyngeal erythema. No thyromegaly. CARDIOVASCULAR: S1 and S2 present. No murmurs, rubs, or gallops. PULMONARY: Chest is clear to auscultation, no wheezing or crackles. ABDOMEN: Soft, nontender, nondistended, normoactive bowel sounds. No palpable organomegaly. MUSCULOSKELETAL: No joint swelling or deformity. EXTREMITIES: No cyanosis, clubbing, or pedal edema. NEUROLOGICAL: Gross neurological examination did not reveal any focal deficits. SKIN: No rashes. - Labs CBC & Chem 7: 06/16/20 07:18 06/16/20 07:18 Labs: Abnormal Lab Results - Last 24 Hours (Table) 06/15/20 06/15/20 06/16/20 Range/Units 16:43 22:17 06:27 RBC (4.30-5.90) m/uL Hgb (13.0-17.5) gm/dL Hct (39.0-53.0) % BUN (9-20) mg/dL Creatinine (0.66-1.25) mg/dL Glucose (74-99) mg/dL POC Glucose (mg/dL) 109 H 109 H 105 H (75-99) mg/dL 06/16/20 06/16/20 06/16/20 Range/Units 06:58 07:18 07:18 RBC 4.04 L (4.30-5.90) m/uL Hgb 12.8 L (13.0-17.5) gm/dL Hct 38.0 L (39.0-53.0) % BUN 31 H (9-20) mg/dL Creatinine 1.28 H (0.66-1.25) mg/dL Glucose 111 H (74-99) mg/dL POC Glucose (mg/dL) 102 H (75-99) mg/dL Assessment and Plan Plan: Dizziness and lightheadedness likely due to dehydration and volume depletion. Rule out arrhythmia. History of permanent pacemaker placement Questionable left facial droop and left eye droop resolved now. Possible TIA Diabetes type 2 insulin-dependent Hypertension Hyperlipidemia Obstructive sleep apnea and not on CPAP at home GERD Osteoarthritis BPH Chronic kidney disease stage III: Creatinine at baseline Iron deficiency anemia and iron IV infusions as an outpatient. DVT prophylaxis with heparin subcu Plan: Patient will be continued on gentle IV hydration and continue with telemetry monitoring. Dizziness did improve. Echocardiogram as mentioned above. Pacemaker will be evaluated Continue with home medications and hold diuretics due to blood pressure being on the lower side.. TSH is within normal limits. Neurology will evaluate the patient. We'll repeat the chest x-ray tomorrow to make sure patient doesn't have fluid retention is Lasix is being held and [facility] is receiving IV fluids.
[2020-06-16 14:04] VITALS: BP 125/62; PULSE 62; RESP 16; TEMP 98.5
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
--- NOTE | 2020-06-16 15:13 | P.DS ---
Providers Date of admission: 06/14/20 17:06 Expected date of discharge: 06/16/20 Attending physician: Giselle Fabian Consults: 06/15/20 19:29 Consult Physician Routine Consulting Provider: Toby Hodgson Consult Reason/Comments: Dizziness Do you want consulting provider notified?: Yes, Notify in am 06/15/20 19:39 Consult Physician Routine Consulting Provider: Gabriele Ryder Consult Reason/Comments: Dizziness Do you want consulting provider notified?: Yes, Notify in am Primary care physician: Tamia Rivera [facility] Course: Final diagnosis Dizziness and lightheadedness likely due to dehydration and volume depletion. Rule out arrhythmia. History of permanent pacemaker placement, pacemaker interrogation with cardiology Questionable left facial droop and left eye droop resolved now. Possible TIA Diabetes type 2 insulin-dependent Hypertension Hyperlipidemia Obstructive sleep apnea and not on CPAP at home GERD Osteoarthritis BPH Chronic kidney disease stage III: Creatinine at baseline Iron deficiency anemia and iron IV infusions as an outpatient. DVT prophylaxis No code Discharge disposition Patient is being discharged in a stable condition with guarded prognosis to home. Patient will follow-up with Dr. Cantrell in the outpatient setting upon discharge. 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 Total time taken is greater than 35 minutes. History of present illness This is a 89-year-old male who was recently admitted with lightheadedness and dizziness and was being closely monitored. Patient was seen and evaluated by neurology recommending MRI although unsure if pacemaker can tolerate. Patient was also seen and evaluated by cardiology recommending pacemaker interrogation. Patient underwent interrogation. Patient did undergo 2-D echo showing moderate concentric left ventricular hypertrophy with normal EF of 50-55% with some mild valvular abnormalities. Patient apparently was having some facial droop although feels back to baseline with no deficits noted. Neurology recommending outpatient follow-up and continue with a baby aspirin along with Lipitor upon discharge. Patient's creatinine is baseline and will continue with Lasix once daily as opposed to his twice daily. Patient instructed to follow-up with primary care provider in the outpatient setting to discuss diuretic therapy and reevaluation with labs in a few days. Patient persistent on wanting to go home. Currently no reports of chest pain, shortness of breath, or palpitations. Patient is afebrile. No reports of nausea or vomiting and patient is tolerating diet. Patient will be discharged home today. On exam vital signs are stable. Temp is 98.5F, pulse is 62, respirations are 16, blood pressure is 125/62, oxygen saturation is 95% on room air. Cardio S1, S2 are muffled. Respiratory system shows diminished breath sounds at the bases with no wheezing or rhonchi noted. Abdomen is soft and nontender. Nervous system shows no focal deficits. Please refer to medication reconciliation sheet for a list of medications. Patient Condition at Discharge: Stable Plan - Discharge Summary Discharge Rx Participant: No New Discharge Prescriptions: New Aspirin 81 mg PO DAILY 30 Days #30 chew Acetaminophen Tab [Tylenol] 650 mg PO Q6HR PRN tab PRN Reason: Mild Pain Or Fever > 100.5 Continue Simvastatin [Zocor] 10 mg PO HS Potassium Chloride ER [K-Dur 20] 20 meq PO BID calcitrioL [Calcitriol] 0.5 mcg PO GALO Metoprolol Succinate (ER) [Toprol XL] 25 mg PO DAILY calcitrioL [Rocaltrol] 0.25 mcg PO MOTUWETHFRSA Ergocalciferol (Vitamin D2) [Drisdol] 50,000 unit PO Q14D Bicalutamide 50 mg PO DAILY Cetirizine HCl 10 mg PO DAILY Doxazosin Mesylate [Cardura] 4 mg PO DAILY guaiFENesin [Mucinex] 600 mg PO BID Insuln Asp Prt/Insulin Aspart [NovoLOG MIX 70-30 VIAL] 15 unit SQ W/BRKFST Insuln Asp Prt/Insulin Aspart [NovoLOG MIX 70-30 VIAL] 10 unit SQ W/SUPPER Vit C/E/Zn/Coppr/Lutein/Zeaxan [Preservision Areds 2 Softgel] 1 cap PO DAILY Changed Furosemide [Lasix] 40 mg PO DAILY #0 Discharge Medication List Potassium Chloride ER [K-Dur 20] 20 meq PO BID 05/27/15 [History] Simvastatin [Zocor] 10 mg PO HS 05/27/15 [History] Bicalutamide 50 mg PO DAILY 07/31/18 [History] Ergocalciferol (Vitamin D2) [Drisdol] 50,000 unit PO Q14D 07/31/18 [History] Metoprolol Succinate (ER) [Toprol XL] 25 mg PO DAILY 07/31/18 [History] calcitrioL [Calcitriol] 0.5 mcg PO GALO 07/31/18 [History] calcitrioL [Rocaltrol] 0.25 mcg PO MOTUWETHFRSA 07/31/18 [History] Cetirizine HCl 10 mg PO DAILY 06/14/20 [History] Doxazosin Mesylate [Cardura] 4 mg PO DAILY 06/14/20 [History] Insuln Asp Prt/Insulin Aspart [NovoLOG MIX 70-30 VIAL] 10 unit SQ W/SUPPER 06/14/20 [History] Insuln Asp Prt/Insulin Aspart [NovoLOG MIX 70-30 VIAL] 15 unit SQ W/BRKFST 06/14/20 [History] Vit C/E/Zn/Coppr/Lutein/Zeaxan [Preservision Areds 2 Softgel] 1 cap PO DAILY 06/14/20 [History] guaiFENesin [Mucinex] 600 mg PO BID 06/14/20 [History] Acetaminophen Tab [Tylenol] 650 mg PO Q6HR PRN tab 06/16/20 [Rx] Aspirin 81 mg PO DAILY 30 Days #30 chew 06/16/20 [Rx] Furosemide [Lasix] 40 mg PO DAILY #0 06/16/20 [Rx] Follow up Appointment(s)/Referral(s): Nicole Cantrell MD [Primary Care Provider] - 1-2 days Kat Ling MD [REFERRING] - 2 Weeks Activity/Diet/Wound Care/Special Instructions: Activity Limited until follow-up Follow-up with primary care provider upon discharge Follow up with neurology in the outpatient setting Continue current diet Continue Lasix once daily Continue with aspirin and Lipitor Discharge Disposition: HOME SELF-CARE
[2020-06-16 17:12] LABS: Glucose,Whole Blood 136 mg/dL (75-99)
[2020-06-16 19:05] LABS: LDL Cholesterol,Calculated 79.8 mg/dL (0.0-131.0)
[2020-06-17] MEDS ORDERED: ASPIRIN 81 MG PO SCH (09:00)
== END 2020-06-16 17:56 | disposition home or self-care (01) ==
LOC: EC 15:03 → 3SCARD 17:06
PROVIDERS: ADMIT Internal Medicine; ATTEND Internal Medicine
DX: R42 Dizziness and giddiness (principal); R29.810 Facial weakness; H02.402 Unspecified ptosis of left eyelid; R11.0 Nausea; R05 Cough; E86.0 Dehydration; E11.22 Type 2 diabetes mellitus with diabetic chronic kidney disease; E78.5 Hyperlipidemia, unspecified; G47.33 Obstructive sleep apnea (adult) (pediatric); K21.9 Gastro-esophageal reflux disease without esophagitis; M19.90 Unspecified osteoarthritis, unspecified site; N40.0 Benign prostatic hyperplasia without lower urinary tract symptoms; N18.30 Chronic kidney disease, stage 3 unspecified; D50.9 Iron deficiency anemia, unspecified; E11.319 Type 2 diabetes mellitus with unspecified diabetic retinopathy without macular edema; J98.11 Atelectasis; K44.9 Diaphragmatic hernia without obstruction or gangrene; I65.23 Occlusion and stenosis of bilateral carotid arteries; Z20.828 Contact with and (suspected) exposure to other viral communicable diseases; E66.9 Obesity, unspecified; M79.89 Other specified soft tissue disorders; G31.9 Degenerative disease of nervous system, unspecified; F02.80 Dementia in other diseases classified elsewhere, unspecified severity, without behavioral disturbance, psychotic disturbance, mood disturbance, and anxiety; J32.9 Chronic sinusitis, unspecified; I37.1 Nonrheumatic pulmonary valve insufficiency; I12.9 Hypertensive chronic kidney disease with stage 1 through stage 4 chronic kidney disease, or unspecified chronic kidney disease; I44.30 Unspecified atrioventricular block; Z79.899 Other long term (current) drug therapy; Z79.4 Long term (current) use of insulin; Z91.02 Food additives allergy status; Z88.6 Allergy status to analgesic agent; Z88.1 Allergy status to other antibiotic agents; Z90.89 Acquired absence of other organs; Z90.49 Acquired absence of other specified parts of digestive tract; Z87.19 Personal history of other diseases of the digestive system; Z95.0 Presence of cardiac pacemaker; Z98.890 Other specified postprocedural states; Z98.41 Cataract extraction status, right eye; Z98.42 Cataract extraction status, left eye; Z87.81 Personal history of (healed) traumatic fracture; Z68.38 Body mass index [BMI] 38.0-38.9, adult; Z82.3 Family history of stroke; Z80.1 Family history of malignant neoplasm of trachea, bronchus and lung; Z80.8 Family history of malignant neoplasm of other organs or systems
CPT/HCPCS: 96360; 96361; 99285; 36415; 93005; 93306; 97162; 97166; 92522; 82747; 80053; 80048; 80061; 84443; 82607; 83605; 83735; 84484; 85025 ×2; 85610; 85730; 81001; 83036; 87635; 71046; 93880; 70450; G0378 ×3

== ENCOUNTER → 2020-08-04 | Outpatient (CLI) | payer MEDICARE, BC ==
[2020-08-04 15:15] LABS: Basophils # (A) 0.03 X 10*3/uL (0.00-0.10); Basophils % (A) 0.4 %; Eosinophils # (A) 0.25 X 10*3/uL (0.04-0.35); Eosinophils % (A) 3.7 %; HCT 38.5 % (39.6-50.0); HGB 12.1 g/dL (13.0-17.0); Lymphocytes # (A) 1.62 X 10*3/uL (0.90-5.00); Lymphocytes % (A) 23.8 %; MCH 30.6 pg (27.0-32.0); MCHC 31.4 g/dL (32.0-37.0); MCV 97.2 fL (80.0-97.0); Mean Platelet Volume 11.9 fL (9.5-12.2); Monocytes # (A) 0.57 X 10*3/uL (0.20-1.00); Monocytes % (A) 8.4 %; Neutrophils # (A) 4.34 X 10*3/uL (1.80-7.70); Neutrophils % (A) 63.6 %; Platelet Count 157 X 10*3/uL (140-440); RBC 3.96 X 10*6/uL (4.40-5.60); RDW 14.3 % (11.5-14.5); WBC 6.82 X 10*3/uL (4.50-10.00)
[2020-08-04 15:24] LABS: Albumin/Globulin Ratio 2.67 (1.60-3.17); Anion Gap 5.1 mmol/L (4.00-12.00); BUN/Creat Ratio 22.14 Ratio (12.00-20.00); Calcium 9.3 mg/dL (8.7-10.3); Carbon Dioxide 30.9 mmol/L (21.6-31.8); Globulin 1.5 g/dL (1.6-3.3); Non-African American GFR(CKD) 44.9 (60.0-200.0); Potassium 4.8 mmol/L (3.5-5.5); Total Bilirubin 0.4 mg/dL (0.2-1.2); Total Protein 5.5 g/dL (6.2-8.2)
[2020-08-04 17:57] LABS: Hemoglobin A1C 6.1 % (4.0-6.0)
== END | disposition home or self-care (01) ==
LOC: LABWHC1 08:49
PROVIDERS: ATTEND Internal Medicine
DX: I12.9 Hypertensive chronic kidney disease with stage 1 through stage 4 chronic kidney disease, or unspecified chronic kidney disease (principal); E11.22 Type 2 diabetes mellitus with diabetic chronic kidney disease; N18.9 Chronic kidney disease, unspecified; E78.5 Hyperlipidemia, unspecified
CPT/HCPCS: 36415; 80053; 83036; 85025

== ENCOUNTER 2020-08-07 01:43 | Emergency (ER) | payer MEDICARE, BC ==
[2020-08-07 01:55] VITALS: TEMP 97.6
[2020-08-07] MEDS ORDERED: SODIUM CHLORIDE 0.9% 1,000 ML IV STA (02:22)
[2020-08-07] MEDS ORDERED: MORPHINE SULFATE 4 MG/ML SYRINGE IV STA (02:22)
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
[2020-08-07 03:05] LABS: Basophils % (A) 0 %; Eosinophils # (A) 0.3 k/uL (0-0.7); Eosinophils % (A) 4 %; HCT 36.4 % (39.0-53.0); HGB 12.3 gm/dL (13.0-17.5); Lymphocytes # (A) 1.5 k/uL (1.0-4.8); Lymphocytes % (A) 24 %; MCHC 33.7 g/dL (31.0-37.0); MCV 91.9 fL (80.0-100.0); Mean Platelet Volume 8.5; Monocytes # (A) 0.3 k/uL (0-1.0); Monocytes % (A) 5 %; Neutrophils % (A) 65 %; Platelet Count 138 k/uL (150-450); RBC 3.97 m/uL (4.30-5.90); RDW 13.7 % (11.5-15.5); WBC 6.2 k/uL (3.8-10.6)
[2020-08-07 03:21] LABS: Albumin 3.4 g/dL (3.5-5.0); Calcium 9.2 mg/dL (8.4-10.2); Magnesium 2.3 mg/dL (1.6-2.3); Phosphorus 4.5 mg/dL (2.5-4.5); Potassium 4.4 mmol/L (3.5-5.1); Total Bilirubin 0.4 mg/dL (0.2-1.3); Total Protein 5.6 g/dL (6.3-8.2)
--- NOTE | 2020-08-07 03:31 | XR ---
EXAM: XR Right Hip With Pelvis When Performed, 2 or 3 Views CLINICAL HISTORY: ITS.REASON XR Reason: pain TECHNIQUE: Two or three views of the right hip with pelvis when performed. COMPARISON: No relevant prior studies available. FINDINGS: Bones/joints: Moderate degenerative changes are seen in the lumbosacral junction. No acute fracture. No dislocation. Soft tissues: Unremarkable. IMPRESSION: No acute findings in the right hip.
--- NOTE | 2020-08-07 03:32 | XR ---
EXAM: XR Lumbosacral Spine, 2 or 3 Views CLINICAL HISTORY: ITS.REASON XR Reason: pain TECHNIQUE: Frontal and lateral views of the lumbar spine and sacrum. COMPARISON: No relevant prior studies available. FINDINGS: Vertebrae: See below. Sacrum/coccyx: Unremarkable as visualized. No acute fracture. Disc spaces: Severe degenerative disc space narrowing with vacuum phenomenon and endplate sclerosis at L2-3. There is 15 scoliosis centered at that level. Mild disc space narrowing and vacuum phenomenon with osteophytosis of L4-5. Mild degenerative osteophytosis throughout the remaining lumbar levels. No acute lumbar spine fracture or subluxation is seen. Soft tissues: Unremarkable. IMPRESSION: Moderate to severe degenerative disc disease and facet arthrosis throughout the lumbar spine greatest at L2-3 and L4-5. No acute fracture or subluxation is seen.
[2020-08-07 04:53] LABS: Appearance,Urine Clear (Clear); Bilirubin,Urine Negative (Negative); Blood,Urine Negative (Negative); Color,Urine Light Yellow; Glucose,Urine (UA) Negative (Negative); Ketones,Urine Negative (Negative); Leukocyte Esterase,Urine Negative (Negative); Nitrite,Urine Negative (Negative); Protein,Urine Negative (Negative); Specific Gravity,Urine 1.011 (1.001-1.035); Urobilinogen,Urine <2.0 mg/dL (<2.0)
[2020-08-07 05:35] VITALS: BP 117/53; PULSE 61; RESP 20
== END 2020-08-07 06:24 | disposition home or self-care (01) ==
LOC: EC 01:43
DX: M25.551 Pain in right hip (principal); R33.9 Retention of urine, unspecified; K21.9 Gastro-esophageal reflux disease without esophagitis; E11.319 Type 2 diabetes mellitus with unspecified diabetic retinopathy without macular edema; E78.5 Hyperlipidemia, unspecified; G47.33 Obstructive sleep apnea (adult) (pediatric); Z79.4 Long term (current) use of insulin; Z79.899 Other long term (current) drug therapy; Z90.49 Acquired absence of other specified parts of digestive tract; Z90.89 Acquired absence of other organs; Z95.0 Presence of cardiac pacemaker; Z88.1 Allergy status to other antibiotic agents; Z88.8 Allergy status to other drugs, medicaments and biological substances; Z91.018 Allergy to other foods
CPT/HCPCS: 51798; 36415; 80053; 82550; 83735; 84100; 85025; 81003; 72100; 73502; 99284; 96374; 96361 ×2; 51702; J2270

== ENCOUNTER → 2020-08-22 | Outpatient (CLI) | payer MEDICARE, BC ==
--- NOTE | 2020-08-22 10:57 | US ---
EXAMINATION TYPE: US kidneys/renal and bladder DATE OF EXAM: 08/22/2020 COMPARISON: 01/05/2018 CLINICAL HISTORY: 89-year-old male N18.31 STAGE 3 CKD. CKD, pt unable to urinate TECHNIQUE: Multiple sonographic images of the kidneys and bladder are obtained. FINDINGS: EXAM MEASUREMENTS: Right Kidney: 8.0 x 4.9 x 4.1 cm Left Kidney: 10.3 x 5.5 x 4.8 cm Right Kidney: Small in size. There seems to be mild hydronephrosis. Left Kidney: Cortical thinning Bladder: Peculiar distended, pt unable to void, pt going to urologist to get cathed Bilateral Jets seen: No, the distal right and left ureters are visualized and dilated IMPRESSION: 1. Bilateral medical renal disease. The right kidney is smaller than the left. There also seems to be mild hydronephrosis on the right. 2. Mildly dilated bilateral distal ureters are visualized during imaging of the bladder. 3. Peculiar distended bladder. The patient is unable to void.
== END | disposition home or self-care (01) ==
LOC: RADUSWWP 08:15
PROVIDERS: ATTEND Internal Medicine Nephrology
DX: N18.31 Chronic kidney disease, stage 3a (principal); N28.82 Megaloureter; N32.89 Other specified disorders of bladder
CPT/HCPCS: 76770

== ENCOUNTER → 2020-09-15 | Outpatient (CLI) | payer MEDICARE, BC ==
[2020-09-15 15:44] LABS: Basophils % (A) 1 %; Eosinophils # (A) 0.5 k/uL (0-0.7); Eosinophils % (A) 7 %; HCT 36.5 % (39.0-53.0); HGB 12.3 gm/dL (13.0-17.5); Lymphocytes # (A) 1.8 k/uL (1.0-4.8); Lymphocytes % (A) 26 %; MCH 31.1 pg (25.0-35.0); MCHC 33.7 g/dL (31.0-37.0); MCV 92.4 fL (80.0-100.0); Monocytes # (A) 0.4 k/uL (0-1.0); Monocytes % (A) 5 %; Neutrophils # (A) 4.2 k/uL (1.3-7.7); Neutrophils % (A) 60 %; Platelet Count 154 k/uL (150-450); RBC 3.96 m/uL (4.30-5.90); RDW 14.6 % (11.5-15.5); WBC 7.1 k/uL (3.8-10.6)
[2020-09-15 15:52] LABS: Calcium 8.9 mg/dL (8.4-10.2); Potassium 4.3 mmol/L (3.5-5.1)
== END | disposition home or self-care (01) ==
LOC: LABPAT 14:41
PROVIDERS: ATTEND Urology
DX: Z01.818 Encounter for other preprocedural examination (principal); E11.9 Type 2 diabetes mellitus without complications; R33.9 Retention of urine, unspecified
CPT/HCPCS: 36415; 80048; 85025

== ENCOUNTER 2020-09-21 09:05 | Inpatient (IN) | payer MEDICARE, BC ==
--- NOTE | 2020-09-21 10:26 | XR ---
EXAMINATION TYPE: XR chest 1V portable DATE OF EXAM: 09/21/2020 COMPARISON: 06/14/2020 INDICATION: Covid TECHNIQUE: Single frontal view of the chest is obtained. FINDINGS: The heart size is upper limits of normal. The pulmonary vasculature is normal. Patchy bilateral lower lobe infiltrates are present greater on the left. Findings are nonspecific and can be compatible with atypical pneumonia. IMPRESSION: 1. Patchy bilateral lung infiltrates, findings can be compatible with atypical pneumonia.
[2020-09-21] MEDS ORDERED: DEXAMETHASONE SOD PHOSPHATE 10 MG/ML 1 ML VIAL IV STA (10:36)
[2020-09-21 10:37] LABS: Basophils % (A) 0 %; Eosinophils % (A) 0 %; HGB 12.1 gm/dL (13.0-17.5); Lymphocytes % (A) 13 %; MCH 30.4 pg (25.0-35.0); MCHC 33.8 g/dL (31.0-37.0); MCV 90.1 fL (80.0-100.0); Mean Platelet Volume 8.8; Monocytes # (A) 0.4 k/uL (0-1.0); Monocytes % (A) 5 %; Neutrophils % (A) 80 %; Platelet Count 127 k/uL (150-450); RBC 3.99 m/uL (4.30-5.90); RDW 14.4 % (11.5-15.5); WBC 7.5 k/uL (3.8-10.6)
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
[2020-09-21 10:50] LABS: Calcium 8.6 mg/dL (8.4-10.2); INR 1.1 (<1.2); Partial Thromboplastin Time 25.8 sec (22.0-30.0); Potassium 4.5 mmol/L (3.5-5.1); Prothrombin Time 11.4 sec (9.0-12.0); Total Bilirubin 0.7 mg/dL (0.2-1.3); Total Protein 5.3 g/dL (6.3-8.2)
[2020-09-21 11:08] LABS: D-Dimer 1.1 mg/L FEU (<0.60)
[2020-09-21] MEDS ORDERED: ONDANSETRON 4 MG/2 ML VIAL IVP PRN (11:13)
[2020-09-21] MEDS ORDERED: NALOXONE 0.4 MG/ML 1 ML VIAL IV PRN (11:13)
[2020-09-21] MEDS ORDERED: ACETAMINOPHEN TAB 325 MG TAB PO PRN ×2 (11:13→12:06)
[2020-09-21] MEDS ORDERED: ENOXAPARIN 40 MG/0.4 ML SYRINGE SQ SCH (11:30)
[2020-09-21] MEDS ORDERED: VIT A,C & E-LUTEIN-MINERALS 1 EACH TAB PO SCH (12:15)
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
[2020-09-21] MEDS: ASCORBIC ACID 500 MG TAB PO SCH ×2 (12:51→21:01)
[2020-09-21] MEDS: METOPROLOL SUCCINATE (ER) 25 MG TAB.ER.24H PO SCH (12:51)
[2020-09-21] MEDS: ZINC SULFATE 220 MG CAP PO SCH (12:51)
[2020-09-21] MEDS: SODIUM CHLORIDE 0.9% 1,000 ML IV SCH ×2 (12:52)
[2020-09-21] MEDS: ERYTHROMYCIN 5 MG/GM OPHTH OINT 3.5 GM TUBE BOTH EYES SCH ×3 (12:53→21:09)
[2020-09-21 13:32] LABS: Glucose,Whole Blood 164 mg/dL (75-99)
[2020-09-21] MEDS: INSULIN ASPART (NovoLOG) 100 UNIT/ML VIAL SQ SCH ×3 (13:40→21:01)
[2020-09-21] MEDS ORDERED: REMDESIVIR 200 MG in SODIUM CHLORIDE 0.9% 250 ML IVPB ONE (16:00)
[2020-09-21 17:07] LABS: Glucose,Whole Blood 190 mg/dL (75-99)
[2020-09-21] MEDS ORDERED: INSULN ASP PRT/INSULIN ASPART 100 UNIT/ML 10 ML VIAL SQ SCH ×2 (17:30)
[2020-09-21 18:07] LABS: Glucose,Whole Blood 246 mg/dL (75-99)
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
[2020-09-21 20:34] LABS: Glucose,Whole Blood 299 mg/dL (75-99)
[2020-09-21] MEDS ORDERED: ATORVASTATIN 10 MG TAB PO SCH (21:00)
[2020-09-21] MEDS: TAMSULOSIN 0.4 MG CAP.ER.24H PO SCH (21:00)
[2020-09-21] MEDS: guaiFENesin 600 MG TABLET.ER PO SCH (21:01)
[2020-09-21] MEDS: HEPARIN SODIUM,PORCINE/PF 5,000 UNIT/0.5 ML SYRINGE SQ SCH (23:46)
[2020-09-22] MEDS: SODIUM CHLORIDE 0.9% 1,000 ML IV SCH ×3 (01:49→18:37)
[2020-09-22 06:27] LABS: Basophils % (A) 0 %; Eosinophils % (A) 0 %; HCT 34.3 % (39.0-53.0); HGB 11.8 gm/dL (13.0-17.5); Lymphocytes # (A) 0.9 k/uL (1.0-4.8); Lymphocytes % (A) 10 %; MCH 31.1 pg (25.0-35.0); MCHC 34.3 g/dL (31.0-37.0); MCV 90.8 fL (80.0-100.0); Monocytes # (A) 0.4 k/uL (0-1.0); Monocytes % (A) 4 %; Neutrophils # (A) 8.2 k/uL (1.3-7.7); Neutrophils % (A) 86 %; Platelet Count 108 k/uL (150-450); RBC 3.78 m/uL (4.30-5.90); RDW 14.4 % (11.5-15.5); WBC 9.5 k/uL (3.8-10.6)
[2020-09-22 06:39] LABS: ALT 28 U/L (4-49); AST 63 U/L (17-59); African American GFR (CKD) 68 (>60 ml/min/1.73 sqM); Albumin 2.5 g/dL (3.5-5.0); Albumin/Globulin Ratio 1.1; Alkaline Phosphatase 32 U/L (38-126); Anion Gap 7 mmol/L; Blood Urea Nitrogen 44 mg/dL (9-20); Calcium 8.1 mg/dL (8.4-10.2); Carbon Dioxide 21 mmol/L (22-30); Chloride 111 mmol/L (98-107); Globulin 2.3 g/dL; Glucose 148 mg/dL (74-99); Non-African American GFR(CKD) 59 (>60 ml/min/1.73 sqM); Potassium 4.3 mmol/L (3.5-5.1); Sodium 139 mmol/L (137-145); Total Bilirubin 0.4 mg/dL (0.2-1.3); Total Protein 4.8 g/dL (6.3-8.2)
[2020-09-22 06:55] LABS: Glucose,Whole Blood 180 mg/dL (75-99)
[2020-09-22] MEDS ORDERED: INSULN ASP PRT/INSULIN ASPART 100 UNIT/ML 10 ML VIAL SQ SCH ×2 (07:30)
[2020-09-22] MEDS ORDERED: PANTOPRAZOLE 40 MG/10 ML VIAL IV SCH (09:00)
[2020-09-22] MEDS ORDERED: FERROUS SULFATE 325 MG TAB PO SCH (09:00)
[2020-09-22] MEDS ORDERED: dexAMETHasone 4 MG TAB PO SCH (09:00)
[2020-09-22] MEDS ORDERED: LORATADINE 10 MG TAB PO SCH (09:00)
[2020-09-22] MEDS: INSULIN ASPART (NovoLOG) 100 UNIT/ML VIAL SQ SCH ×2 (09:24→12:01)
[2020-09-22] MEDS: METOPROLOL SUCCINATE (ER) 25 MG TAB.ER.24H PO SCH (09:24)
[2020-09-22] MEDS: ZINC SULFATE 220 MG CAP PO SCH (09:24)
[2020-09-22] MEDS: ASCORBIC ACID 500 MG TAB PO SCH (09:24)
[2020-09-22] MEDS: TAMSULOSIN 0.4 MG CAP.ER.24H PO SCH ×2 (09:24→22:17)
[2020-09-22] MEDS: HEPARIN SODIUM,PORCINE/PF 5,000 UNIT/0.5 ML SYRINGE SQ SCH (09:25)
[2020-09-22] MEDS: guaiFENesin 600 MG TABLET.ER PO SCH ×2 (09:25→22:16)
[2020-09-22] MEDS: ERYTHROMYCIN 5 MG/GM OPHTH OINT 3.5 GM TUBE BOTH EYES SCH ×4 (09:25→22:17)
[2020-09-22 10:07] LABS: Glucose,Whole Blood 172 mg/dL (75-99)
--- NOTE | 2020-09-22 10:50 | CT ---
EXAMINATION TYPE: CT brain wo con for TPA DATE OF EXAM: 09/22/2020 COMPARISON: 06/14/2020 HISTORY: 89-year-old male left sided weakness, neurologic deficit, acute, stroke suspected. TECHNIQUE: Examination was done in axial plane without intravenous contrast. Coronal and sagittal r econstructions performed. CT DLP: 1044 mGycm Automated exposure control for dose reduction was used. FINDINGS: There is no evidence of acute intracranial hemorrhage, acute ischemic changes, mass, mass-effect, or extra-axial fluid collection. There is no effacement of cerebral sulci or basal subarachnoid cister ns. There is no hydrocephalus. There is no midline shift. Peck-white matter distinction is preserv ed. Dense atherosclerotic calcifications vertebral arteries and mild to moderate within the carotid sipho ns. Mild generalized atrophy. Scattered mild patchy white matter hypodensities such as in the right subinsular white matter. 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 Continued moderate to severe mucosal thickening and opacification throughout the ethmoid air cells an d maxillary sinuses. Moderate mucosal thickening right frontal sinus. Rightward nasal septal deviatio n. Mastoid air cells well pneumatized. Orbits and globes appear intact. IMPRESSION: 1. Stable mild generalized atrophy and old areas of subinsular white matter infarcts, left greater th an right. No acute intracranial abnormality seen. Follow-up CT or MRI if symptoms persist. 2. Continued moderate to severe chronic ethmoid and maxillary sinus disease.
--- NOTE | 2020-09-22 11:14 | CT ---
EXAMINATION TYPE: CODE STROKE: CTA head neck DATE OF EXAM: 09/22/2020 COMPARISON: CT head same day and chest radiograph 09/21/2020 HISTORY: 89-year-old male neurologic deficit, acute, stroke suspected, left-sided weakness. TECHNIQUE: Contiguous axial scanning of the head and neck performed with IV Contrast, patient injecte d with 75 mL of Isovue 370. Coronal/sagittal MIP reconstructions performed. 3-D reconstructions gener ated on a dedicated workstation. CT DLP: mGycm Automated exposure control for dose reduction was used. FINDINGS: NECK: Heart is mildly enlarged. Left-sided pacemaker generator with right atrial and right ventricular lead s. Known moderate to large hiatal hernia is not included in the [id number]. There are small effusi ons bilaterally and confluent groundglass opacities bilaterally. Ectatic upper descending thoracic aorta 3.4 cm. Mild atherosclerotic arch calcifications. Conventiona l arch vessel branching anatomy. There is prominent motion artifact limiting assessment. The right brachiocephalic artery is patent. However, there is severe atherosclerotic change at the bi furcation of the brachiocephalic artery, suspect severe stenosis at the origin of the right subclavia n artery with poststenotic dilatation up to 1.8 cm. Suspect a moderate or severe narrowing at the origin of the right common carotid artery as well. The remainder of the right common carotid arteries patent. Moderate, just over 50% atherosclerotic narrowing at the right carotid bulb. Remainder of the right ICA is patent. Left common carotid artery is patent. Moderate atelectatic change left carotid bifurcation with mild, just under 50% at the static narrowing of the carotid bulb. Remainder of the left ICA is patent. HEAD: There is prominent patient motion limiting the evaluation. The V4 segment right vertebral artery becomes slightly hypoplastic. Scattered [id number] athero sclerotic calcifications are present, moderate narrowing distal aspect before segment right vertebral artery. Basilar artery and remainder of the posterior circulation appears patent. Scattered mild atherosclerotic narrowing within the carotid siphons. No hemodynamically significant s tenosis within either ICA seen. Slightly hypoplastic A1 segment right vertebral artery. There is 5 mm nodular prominence at the level of the anterior communicating artery. Refer to thin slice axial image 190 and sagittal image 16. Otherwise, remainder of the anterior circulation is patent. Dural venous sinuses are patent. IMPRESSION: NECK: 1. Severe atherosclerotic change at the bifurcation of the right brachiocephalic artery. Suspect cayden re stenosis at the origin of the right subclavian artery with poststenotic dilatation of 1.8 cm. Susp ect a moderate to severe narrowing at the origin of the right common carotid artery as well. 2. Moderate, just over 50% proximal right ICA stenosis. 3. Mild, just under 50% left ICA stenosis. 4. Cardiomegaly with small effusions. Correlate for underlying CHF. Groundglass changes are nearly co nfluent and could reflect COVID pneumonia or pulmonary edema. HEAD: 5. Dominant left vertebral artery. Moderate atherosclerotic narrowing distal V4 segment right vertebr al artery. 6. 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 Appropriate follow-up recommended. 7. Otherwise, no large vessel intracranial arterial occlusion or significant stenosis seen.
[2020-09-22 11:38] LABS: Glucose,Whole Blood 67 mg/dL (75-99)
[2020-09-22 11:45] LABS: Glucose,Whole Blood 62 mg/dL (75-99)
[2020-09-22] MEDS ORDERED: DEXTROSE 50% SYRINGE 50 ML IVP ONE (11:47)
[2020-09-22 12:02] LABS: Glucose,Whole Blood 181 mg/dL (75-99)
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
[2020-09-22] MEDS ORDERED: FUROSEMIDE 10 MG/ML 4 ML VIAL IV STA (12:52)
--- NOTE | 2020-09-22 12:58 | P.PN ---
Subjective Progress Note Date: 09/22/20 89-year-old male patient of Dr. Cantrell, with extensive medical history including history of COPD not normally oxygen dependent, chronic kidney disease stage III, diabetes mellitus type 2, hyperlipidemia, prostate disorder, history of metastatic prostate cancer, sleep apnea on CPAP therapy, chronic anemia, permanent pacemaker implantation. Patient follows with Dr. Gates from urology, patient has obstructive prostate, and he had failed multiple trials voids, he was supposed to come in for TURP tomorrow on 09/22/2020. Patient states 2 days ago he started developing increased shortness of breath, cough, chest congestion, weakness, but denies any fever, no nausea vomiting or diarrhea. He states he still having some trouble passing the urine. He is on room air with a pulse ox of 88%, he is normally not oxygen dependent, 4 L of oxygen his pulse ox is 96%, his chest x-ray showed patchy bilateral lung infiltrates compatible with atypical pneumonia. He tested positive for COVID 19, his lab work showed white blood cell count of 7.5, hemoglobin of 12.1, d-dimer was 1.10, electrolytes are within normal limits, B1 is 48 and creatinine is 1.67. He had a troponin leak, of 0.048, 0.047, 0.045, no complaints of chest pain, his lactic acid was 1.8. He was started on Remdesivir in the emergency department, awaiting admission to the medical surgical floor, breathing fairly comfortably, lung sounds reveal to merge breath sounds with scattered crackles. On 09/22/2020, the patient is being seen for a follow-up. Earlier this morning, he was given a "stroke because of acute left-sided patient due. The patient underwent a computed tomography scan of the brain and a CT angiogram that was negative. Not given any TPA. Clinically the patient is able to move all 4 ext remities without any limitation.. He is able to talk and converse. Meanwhile, earlier this morning, his breathing got worse and currently is on 100% nonrebreather facemask. He has diffuse crackles on examination. He is breathing is labored. He was started on Remdesivir and decadron. The acute neurologic deficit of been related to either hypoxemia or hypoglycemia. Currently seems to be much more appropriate. The patient has labeled himself as DNR/DNI. He is known to have COPD and obstructive uropathy and currently the patient is a Araujo catheter in place. He has chronic stage III kidney disease along with diabetes mellitus type 2, prostate disorder, hyperlipidemia and previous history of metastatic prostate cancer. He has obstructive sleep apnea maintained on CPAP on a outpatient basis and the patient has a permanent pacemaker in place. Creatinine today is 1.1 and is improved. The patient was given a dose of Lasix yesterday and the patient is producing adequate amount of urine output. Still has some edema in lower extremities bilaterally. Negative fluid balance of 1.2 L over the past 24 hours. Objective - Vital Signs Vital signs: Vital Signs Temp 98.4 F 09/22/20 05:30 Pulse 62 09/22/20 05:30 Resp 24 09/22/20 10:57 BP 118/60 09/22/20 09:34 Pulse Ox 95 09/22/20 10:57 Intake & Output 09/21/20 09/22/20 09/22/20 18:59 06:59 18:59 Output Total 350 925 Balance -350 -925 Weight 92.079 kg 92.079 kg Output: Urine 350 925 Other: Voiding Method Indwelling Catheter # Bowel Movements 1 1 - Exam GENERAL EXAM: Alert, pleasant, 89-year-old white male patient, he is on 100% nonrebreather facemask, appears chronically ill looking, but breathing comfortably in no apparent distress. HEAD: Normocephalic/atraumatic. EYES: Normal reaction of pupils, equal size. Conjunctiva pink, sclera white. NOSE: Clear with pink turbinates. THROAT: No erythema or exudates. NECK: No masses, no JVD, no thyroid enlargement, no adenopathy. CHEST: No chest wall deformity. Symmetrical expansion. Left upper chest pacemaker insertion site clean dry and intact LUNGS: Equal air entry with diffuse crackles and a few rhonchi CVS: Regular rate and rhythm, normal S1 and S2, no gallops, no murmurs, no rubs ABDOMEN: Soft, nontender. No hepatosplenomegaly, normal bowel sounds, no guarding or rigidity. EXTREMITIES: No clubbing, no edema, no cyanosis, 2+ pulses and upper and lower extremities. MUSCULOSKELETAL: Muscle strength and tone normal. SPINE: No scoliosis or deformity SKIN: No rashes. Patient has a dressing on his right great toe CENTRAL NERVOUS SYSTEM: Alert and oriented -3. No focal deficits, tone is normal in all 4 extremities. PSYCHIATRIC: Alert and oriented -3. Appropriate affect. Intact judgment and insight. - Labs CBC & Chem 7: 09/22/20 05:53 09/22/20 05:53 Labs: Abnormal Lab Results - Last 24 Hours (Table) 09/21/20 09/21/20 09/21/20 Range/Units 13:23 13:30 16:16 RBC (4.30-5.90) m/uL Hgb (13.0-17.5) gm/dL Hct (39.0-53.0) % Plt Count (150-450) k/uL Neutrophils # (1.3-7.7) k/uL Lymphocytes # (1.0-4.8) k/uL Chloride (98-107) mmol/L Carbon Dioxide (22-30) mmol/L BUN (9-20) mg/dL Glucose (74-99) mg/dL POC Glucose (mg/dL) 164 H (75-99) mg/dL Calcium (8.4-10.2) mg/dL AST (17-59) U/L Alkaline Phosphatase (38-126) U/L Troponin I 0.047 H* 0.045 H* (0.000-0.034) ng/mL Total Protein (6.3-8.2) g/dL Albumin (3.5-5.0) g/dL 09/21/20 09/21/20 09/21/20 Range/Units 17:05 17:47 20:33 RBC (4.30-5.90) m/uL Hgb (13.0-17.5) gm/dL Hct (39.0-53.0) % Plt Count (150-450) k/uL Neutrophils # (1.3-7.7) k/uL Lymphocytes # (1.0-4.8) k/uL Chloride (98-107) mmol/L Carbon Dioxide (22-30) mmol/L BUN (9-20) mg/dL Glucose (74-99) mg/dL POC Glucose (mg/dL) 190 H 246 H 299 H (75-99) mg/dL Calcium (8.4-10.2) mg/dL AST (17-59) U/L Alkaline Phosphatase (38-126) U/L Troponin I (0.000-0.034) ng/mL Total Protein (6.3-8.2) g/dL Albumin (3.5-5.0) g/dL 09/22/20 09/22/20 09/22/20 Range/Units 05:53 05:53 06:54 RBC 3.78 L (4.30-5.90) m/uL Hgb 11.8 L (13.0-17.5) gm/dL Hct 34.3 L (39.0-53.0) % Plt Count 108 L (150-450) k/uL Neutrophils # 8.2 H (1.3-7.7) k/uL Lymphocytes # 0.9 L (1.0-4.8) k/uL Chloride 111 H (98-107) mmol/L Carbon Dioxide 21 L (22-30) mmol/L BUN 44 H (9-20) mg/dL Glucose 148 H (74-99) mg/dL POC Glucose (mg/dL) 180 H (75-99) mg/dL Calcium 8.1 L (8.4-10.2) mg/dL AST 63 H (17-59) U/L Alkaline Phosphatase 32 L (38-126) U/L Troponin I (0.000-0.034) ng/mL Total Protein 4.8 L (6.3-8.2) g/dL Albumin 2.5 L (3.5-5.0) g/dL 09/22/20 09/22/20 09/22/20 Range/Units 10:05 11:34 11:44 RBC (4.30-5.90) m/uL Hgb (13.0-17.5) gm/dL Hct (39.0-53.0) % Plt Count (150-450) k/uL Neutrophils # (1.3-7.7) k/uL Lymphocytes # (1.0-4.8) k/uL Chloride (98-107) mmol/L Carbon Dioxide (22-30) mmol/L BUN (9-20) mg/dL Glucose (74-99) mg/dL POC Glucose (mg/dL) 172 H 67 L 62 L (75-99) mg/dL Calcium (8.4-10.2) mg/dL AST (17-59) U/L Alkaline Phosphatase (38-126) U/L Troponin I (0.000-0.034) ng/mL Total Protein (6.3-8.2) g/dL Albumin (3.5-5.0) g/dL 09/22/20 Range/Units 12:01 RBC (4.30-5.90) m/uL Hgb (13.0-17.5) gm/dL Hct (39.0-53.0) % Plt Count (150-450) k/uL Neutrophils # (1.3-7.7) k/uL Lymphocytes # (1.0-4.8) k/uL Chloride (98-107) mmol/L Carbon Dioxide (22-30) mmol/L BUN (9-20) mg/dL Glucose (74-99) mg/dL POC Glucose (mg/dL) 181 H (75-99) mg/dL Calcium (8.4-10.2) mg/dL AST (17-59) U/L Alkaline Phosphatase (38-126) U/L Troponin I (0.000-0.034) ng/mL Total Protein (6.3-8.2) g/dL Albumin (3.5-5.0) g/dL Assessment and Plan Plan: #1. Acute hypoxic respiratory failure related to COVID 19 pneumonia, patient reports symptoms of weakness, cough and congestion 2 days ago. Patient was started on Remdesivir day #2 and the patient is also on Decadron. Meanwhile, his oxygenation is gotten worse and the patient was moved up to 100% nonrebreather facemask. His current pulse ox is around 90%. No reported aspiration. His lungs are crackling bilaterally. Repeat chest x-ray was obtained today and the patient will be also diuresis. #2. Acute kidney injury, currently renal function is improving creatinine is normalizing. The patient has a Araujo catheter in place. The patient will be given Lasix. #3. Obstructive prostate, with history of metastatic prostate cancer on a DVT, is scheduled for TURP on 09/22/2020 #4. Diabetes mellitus type 2 #5. Hyperlipidemia #6. Osteoarthritis #7. Chronic kidney disease #8. Obstructive sleep apnea but does not wear CPAP #9. Permanent pacemaker implantation #10, acute left-sided weakness involving the face, with a workup including a CVA and a CAT scan of the brain was negative. Consider hypoglycemia versus hypoxemia contributing to this abnormality. The patient has no other focal neurological deficit. No signs of CVA. Plan: Continue Decadron at a dose of 60 mg IV every 24 hours and Remdesivir day #2 of treatment and we'll stop the medication if there is ongoing worsening in his hypoxemia and respiratory failure. continue Lovenox 40 mg subcu every 24 hours continue vitamin cocktail Lasix 40 mg IV push 1 Repeat chest x-ray Keep the Araujo catheter in place Monitor urine output Aspiration precautions CODE STATUS was discussed with the patient and he made it clear she does not want any heroic measures, does not want intubation, does not want aggressive resuscitation and placement on life-support, we'll continue supportive artie atment. We will follow his clinical course and make recommendations accordinglyAlso strongly advised hospice based on his age comorbidities and clinical progression.,
[2020-09-22] MEDS ORDERED: ENOXAPARIN 40 MG/0.4 ML SYRINGE SQ SCH (13:00)
[2020-09-22] MEDS ORDERED: DEXAMETHASONE SOD PHOSPHATE 10 MG/ML 1 ML VIAL IV SCH (13:00)
--- NOTE | 2020-09-22 13:19 | XR ---
EXAMINATION TYPE: XR chest 1V portable DATE OF EXAM: 09/22/2020 COMPARISON: 09/21/2020 HISTORY: Shortness of breath TECHNIQUE: Single frontal view of the chest is obtained. FINDINGS: Progressive consolidation and diffuse interstitial pattern with bilateral pleural effusion and consolidation. Cardiac device seen. No pneumothorax. Large hiatal hernia suspected. IMPRESSION: Progressive airspace disease with pleural effusion correlate for worsening pneumonia, pu lmonary edema or ARDS.
[2020-09-22 13:57] VITALS: TEMP 100.7
[2020-09-22 16:33] LABS: Glucose,Whole Blood 98 mg/dL (75-99)
[2020-09-22] MEDS ORDERED: polyethylene glycoL 3350 17 GM POWD.PACK PO PRN (16:59)
[2020-09-22] MEDS ORDERED: HALOPERIDOL LACTATE 5 MG/ML 1 ML VIAL IM PRN (16:59)
[2020-09-22] MEDS ORDERED: ARTIFICIAL TEARS-HYPROMELLOSE DROPS 15 ML BTL BOTH EYES PRN (16:59)
[2020-09-22] MEDS ORDERED: SCOPOLAMINE 1.5MG/72HR PATCH TRANSDERM SCH (17:00)
--- NOTE | 2020-09-22 17:01 | P.PN ---
Subjective 89-year-old pleasant male came in with complaints of cough congestion for 3-4 days and also shortness of breath presently on the 4 L of oxygen. Patient denied any fever chills patient denied any nausea vomiting diarrhea. Patient found to have positive Covid 19 PCR. Patient has elevated serum creatinine of 1.67 baseline is around 1.3. She is on diuretics at home previous echo Showed normal ejection fraction no mention of any diastolic dysfunction. has mildly elevated troponin secondary to renal failure and hypoxemia 2 more sets of troponins will be obtained. Patient did not receive his Covid vaccine. 09/22/2020 Patient had weakness and facial droop on the left side patient had a CT of the pain and CT angiogram which was negative. Patient was not given TPA patient exam is limited because of his respiratory distress does appear to have facial droop on the left side patient is on 100% nonrebreather along with 15 L diffuse crackles on lung exam patient is presently DO NOT RESUSCITATE patient appears to be in significant respiratory distress hypoxemic patient is presently on remdesivir and Decadron. Patient is able to make decision was discussed with the patient regarding his overall goals of care. Patient is agreeable with hospice and that's probably the most appropriate management. Patient will need intubation which is the next and because of his respiratory distress unable to oxygenate and low saturations in spite of being on 100% nonrebreather and 15 L of high flow nasal cannula oxygen and patient is in significant respiratory distress and sting his age and his other chronic medical problems a possibility of him getting out of the ventilator with the Covid 19 is extremely low because of which I discussed the same thing with the patient as well as daughter were agreeable and comfort care and hospice patient will be switched to hospice all other medications will be discontinued. Constitutional: Significant weakness generalized fatigue Cardio vascular: denied any chest pain, palpitations Gastrointestinal denied any nausea vomiting Pulmonary: In significant respiratory distress unable to talk Neurologic left-sided weakness All inpatient medications were reviewed and appropriate changes in these medications as dictated in the interval history and assessment and plan. Objective - Vital Signs Vital signs: Vital Signs Temp 100.7 F H 09/22/20 13:56 Pulse 71 09/22/20 13:56 Resp 25 H 09/22/20 13:56 BP 114/67 09/22/20 13:56 Pulse Ox 90 L 09/22/20 13:56 Intake & Output 09/21/20 09/22/20 09/22/20 18:59 06:59 18:59 Output Total 350 925 Balance -350 -925 Weight 92.079 kg 92.079 kg Output: Urine 350 925 Other: Voiding Method Indwelling Catheter # Bowel Movements 1 1 - Exam PHYSICAL EXAMINATION: GENERAL: The patient is alert and oriented x3, is in significant respiratory distress HEENT: Pupils are round and equally reacting to light. EOMI. No scleral icterus. No conjunctival pallor. Normocephalic, atraumatic. No pharyngeal erythema. No thyromegaly. CARDIOVASCULAR: S1 and S2 present. No murmurs, rubs, or gallops. PULMONARY: Diffuse bilateral crackles ABDOMEN: Soft, nontender, nondistended, normoactive bowel sounds. No palpable organomegaly. MUSCULOSKELETAL: No joint swelling or deformity. EXTREMITIES: No cyanosis, clubbing, or pedal edema. NEUROLOGICAL: Focal weakness on the left side of the body SKIN: No rashes. - Labs CBC & Chem 7: 09/22/20 05:53 09/22/20 05:53 Labs: Abnormal Lab Results - Last 24 Hours (Table) 09/21/20 09/21/20 09/21/20 Range/Units 16:16 17:05 17:47 RBC (4.30-5.90) m/uL Hgb (13.0-17.5) gm/dL Hct (39.0-53.0) % Plt Count (150-450) k/uL Neutrophils # (1.3-7.7) k/uL Lymphocytes # (1.0-4.8) k/uL Chloride (98-107) mmol/L Carbon Dioxide (22-30) mmol/L BUN (9-20) mg/dL Glucose (74-99) mg/dL POC Glucose (mg/dL) 190 H 246 H (75-99) mg/dL Calcium (8.4-10.2) mg/dL AST (17-59) U/L Alkaline Phosphatase (38-126) U/L Troponin I 0.045 H* (0.000-0.034) ng/mL Total Protein (6.3-8.2) g/dL Albumin (3.5-5.0) g/dL 09/21/20 09/22/20 09/22/20 Range/Units 20:33 05:53 05:53 RBC 3.78 L (4.30-5.90) m/uL Hgb 11.8 L (13.0-17.5) gm/dL Hct 34.3 L (39.0-53.0) % Plt Count 108 L (150-450) k/uL Neutrophils # 8.2 H (1.3-7.7) k/uL Lymphocytes # 0.9 L (1.0-4.8) k/uL Chloride 111 H (98-107) mmol/L Carbon Dioxide 21 L (22-30) mmol/L BUN 44 H (9-20) mg/dL Glucose 148 H (74-99) mg/dL POC Glucose (mg/dL) 299 H (75-99) mg/dL Calcium 8.1 L (8.4-10.2) mg/dL AST 63 H (17-59) U/L Alkaline Phosphatase 32 L (38-126) U/L Troponin I (0.000-0.034) ng/mL Total Protein 4.8 L (6.3-8.2) g/dL Albumin 2.5 L (3.5-5.0) g/dL 09/22/20 09/22/20 09/22/20 Range/Units 06:54 10:05 11:34 RBC (4.30-5.90) m/uL Hgb (13.0-17.5) gm/dL Hct (39.0-53.0) % Plt Count (150-450) k/uL Neutrophils # (1.3-7.7) k/uL Lymphocytes # (1.0-4.8) k/uL Chloride (98-107) mmol/L Carbon Dioxide (22-30) mmol/L BUN (9-20) mg/dL Glucose (74-99) mg/dL POC Glucose (mg/dL) 180 H 172 H 67 L (75-99) mg/dL Calcium (8.4-10.2) mg/dL AST (17-59) U/L Alkaline Phosphatase (38-126) U/L Troponin I (0.000-0.034) ng/mL Total Protein (6.3-8.2) g/dL Albumin (3.5-5.0) g/dL 09/22/20 09/22/20 Range/Units 11:44 12:01 RBC (4.30-5.90) m/uL Hgb (13.0-17.5) gm/dL Hct (39.0-53.0) % Plt Count (150-450) k/uL Neutrophils # (1.3-7.7) k/uL Lymphocytes # (1.0-4.8) k/uL Chloride (98-107) mmol/L Carbon Dioxide (22-30) mmol/L BUN (9-20) mg/dL Glucose (74-99) mg/dL POC Glucose (mg/dL) 62 L 181 H (75-99) mg/dL Calcium (8.4-10.2) mg/dL AST (17-59) U/L Alkaline Phosphatase (38-126) U/L Troponin I (0.000-0.034) ng/mL Total Protein (6.3-8.2) g/dL Albumin (3.5-5.0) g/dL Assessment and Plan Plan: -Acute hypoxic respiratory failure: Secondary to covid 19 pneumonia. Patient is on Decadron, multivitamins, patient is also on Remdesivir. Significantly worsening respiratory status presently on 100% nonrebreather along with 15 L of oxygen. Saturating in low 80s significant respiratory distress. Patient will be comfort care -Acute ischemic stroke involving right middle MCA territory and weakness in the left side of the body. -Acute renal failure: Secondary to prerenal azotemia from sepsis , patient was given a dose of Lasix because of his respiratory failure and repeat chest x-ray showing worsening ARDS or pulmonary edema IV fluids were discontinued and held -Chronic kidney disease stage III probably from diabetic nephropathy -Type 2 diabetes mellitus: Uncontrolled and elevated -Gastroesophageal reflux disease next and-hyperlipidemia Abdomen benign prostatic hypertrophy -Sleep apnea and uses CPAP machine at home -DVT prophylaxis with heparin as patient has renal dysfunction probably Lovenox is not the most appropriate for DVT prophylaxis Patient will be transitioned to comfort care and hospice
[2020-09-22] MEDS ORDERED: REMDESIVIR 100 MG in SODIUM CHLORIDE 0.9% 250 ML IVPB SCH (18:00)
[2020-09-22] MEDS: MORPHINE SULFATE (100 MG/2 ML) 100 MG in SODIUM CHLORIDE 0.9% 100 ML IV SCH (18:13)
[2020-09-22] MEDS: MORPHINE SULFATE 2 MG/ML SYRINGE IV PRN ×2 (18:35→22:09)
[2020-09-22] MEDS: GLYCOPYRROLATE 0.2 MG/ML 2 ML VIAL IVP PRN (22:17)
[2020-09-23 06:10] VITALS: BP 106/61
[2020-09-23] MEDS: MORPHINE SULFATE 2 MG/ML SYRINGE IV PRN (08:35)
[2020-09-23] MEDS: GLYCOPYRROLATE 0.2 MG/ML 2 ML VIAL IVP PRN ×2 (08:48→15:23)
[2020-09-23] MEDS ORDERED: ASPIRIN 81 MG PO SCH (09:00)
[2020-09-23] MEDS ORDERED: VIT A,C & E-LUTEIN-MINERALS 1 EACH TAB PO SCH (09:00)
[2020-09-23 09:10] VITALS: PULSE 100; RESP 16
[2020-09-23] MEDS: MORPHINE SULFATE (100 MG/2 ML) 100 MG in SODIUM CHLORIDE 0.9% 100 ML IV SCH (11:04)
[2020-09-23] MEDS: ERYTHROMYCIN 5 MG/GM OPHTH OINT 3.5 GM TUBE BOTH EYES SCH ×2 (11:05→12:21)
[2020-09-23] MEDS: guaiFENesin 600 MG TABLET.ER PO SCH (11:06)
--- NOTE | 2020-09-23 13:05 | P.PN ---
Subjective Progress Note Date: 09/23/20 89-year-old male patient of Dr. Cantrell, with extensive medical history including history of COPD not normally oxygen dependent, chronic kidney disease stage III, diabetes mellitus type 2, hyperlipidemia, prostate disorder, history of metastatic prostate cancer, sleep apnea on CPAP therapy, chronic anemia, permanent pacemaker implantation. Patient follows with Dr. Gates from urology, patient has obstructive prostate, and he had failed multiple trials voids, he was supposed to come in for TURP tomorrow on 09/22/2020. Patient states 2 days ago he started developing increased shortness of breath, cough, chest congestion, weakness, but denies any fever, no nausea vomiting or diarrhea. He states he still having some trouble passing the urine. He is on room air with a pulse ox of 88%, he is normally not oxygen dependent, 4 L of oxygen his pulse ox is 96%, his chest x-ray showed patchy bilateral lung infiltrates compatible with atypical pneumonia. He tested positive for COVID 19, his lab work showed white blood cell count of 7.5, hemoglobin of 12.1, d-dimer was 1.10, electrolytes are within normal limits, B1 is 48 and creatinine is 1.67. He had a troponin leak, of 0.048, 0.047, 0.045, no complaints of chest pain, his lactic acid was 1.8. He was started on Remdesivir in the emergency department, awaiting admission to the medical surgical floor, breathing fairly comfortably, lung sounds reveal to merge breath sounds with scattered crackles. On 09/22/2020, the patient is being seen for a follow-up. Earlier this morning, he was given a "stroke because of acute left-sided patient due. The patient underwent a computed tomography scan of the brain and a CT angiogram that was negative. Not given any TPA. Clinically the patient is able to move all 4 ext remities without any limitation.. He is able to talk and converse. Meanwhile, earlier this morning, his breathing got worse and currently is on 100% nonrebreather facemask. He has diffuse crackles on examination. He is breathing is labored. He was started on Remdesivir and decadron. The acute neurologic deficit of been related to either hypoxemia or hypoglycemia. Currently seems to be much more appropriate. The patient has labeled himself as DNR/DNI. He is known to have COPD and obstructive uropathy and currently the patient is a Araujo catheter in place. He has chronic stage III kidney disease along with diabetes mellitus type 2, prostate disorder, hyperlipidemia and previous history of metastatic prostate cancer. He has obstructive sleep apnea maintained on CPAP on a outpatient basis and the patient has a permanent pacemaker in place. Creatinine today is 1.1 and is improved. The patient was given a dose of Lasix yesterday and the patient is producing adequate amount of urine output. Still has some edema in lower extremities bilaterally. Negative fluid balance of 1.2 L over the past 24 hours. 09/23/2020, the patient is on a morphine drip and the patient is proceeding with hospice care. His condition has decompensated and the family has arrived and agreed on comfort care measures. He is currently on 15 L of oxygen by nasal cannula with a pulse ox of 70%. He is well rested on morphine drip. No signs of any respiratory distress or agitation. Objective - Vital Signs Vital signs: Vital Signs Temp 100.7 F H 09/22/20 13:56 Pulse 100 09/23/20 09:08 Resp 16 09/23/20 09:08 BP 106/61 09/23/20 06:00 Pulse Ox 71 L 09/23/20 09:08 Intake & Output 09/22/20 09/23/20 09/23/20 18:59 06:59 18:59 Intake Total 16.092 63.993 Output Total 780 1600 Balance -780 -1583.908 63.993 Intake: Intake, IV Titration 16.092 63.993 Amount Morphine Sulfate (100 mg/ 16.092 63.993 2 ml) 100 mg In Sodium Chloride 0.9% 100 ml @ 1 MG/HR 1.02 mls/hr IV . Q24H [facility] Rx#:[id number] Output: Urine 780 1600 Other: Voiding Method Indwelling Catheter Indwelling Catheter Indwelling Catheter # Bowel Movements 3 - Exam GENERAL EXAM: Alert, pleasant, 89-year-old white male patient, he is on 15 L nasal cannula, but breathing comfortably in no apparent distress. HEAD: Normocephalic/atraumatic. EYES: Normal reaction of pupils, equal size. Conjunctiva pink, sclera white. NOSE: Clear with pink turbinates. THROAT: No erythema or exudates. NECK: No masses, no JVD, no thyroid enlargement, no adenopathy. CHEST: No chest wall deformity. Symmetrical expansion. Left upper chest pacemaker insertion site clean dry and intact LUNGS: Equal air entry with diffuse crackles and a few rhonchi CVS: Regular rate and rhythm, normal S1 and S2, no gallops, no murmurs, no rubs ABDOMEN: Soft, nontender. No hepatosplenomegaly, normal bowel sounds, no guarding or rigidity. EXTREMITIES: No clubbing, no edema, no cyanosis, 2+ pulses and upper and lower extremities. MUSCULOSKELETAL: Muscle strength and tone normal. SPINE: No scoliosis or deformity SKIN: No rashes. Patient has a dressing on his right great toe CENTRAL NERVOUS SYSTEM: Alert and oriented -3. No focal deficits, tone is normal in all 4 extremities. PSYCHIATRIC: Alert and oriented -3. Appropriate affect. Intact judgment and insight. - Labs CBC & Chem 7: 09/22/20 05:53 09/22/20 05:53 Assessment and Plan Plan: #1. Acute hypoxic respiratory failure related to COVID 19 pneumonia, with respiratory failure, currently undergoing end-of-life care. #2. Acute kidney injury, currently renal function is improving creatinine is normalizing. The patient has a Araujo catheter in place. The patient will be given Lasix. #3. Obstructive prostate, with history of metastatic prostate cancer on a DVT, is scheduled for TURP on 09/22/2020 #4. Diabetes mellitus type 2 #5. Hyperlipidemia #6. Osteoarthritis #7. Chronic kidney disease #8. Obstructive sleep apnea but does not wear CPAP #9. Permanent pacemaker implantation #10, acute left-sided weakness involving the face, with a workup including a CVA and a CAT scan of the brain was negative. Consider hypoglycemia versus hypoxemia contributing to this abnormality. The patient has no other focal neurological deficit. No signs of CVA. Plan: Continue morphine drip. Continue end-of-life care, is at the bedside.
--- NOTE | 2020-09-23 16:01 | P.PN ---
Subjective Progress Note Date: 09/23/20 89-year-old pleasant male came in with complaints of cough congestion for 3-4 days and also shortness of breath presently on the 4 L of oxygen. Patient denied any fever chills patient denied any nausea vomiting diarrhea. Patient found to have positive Covid 19 PCR. Patient has elevated serum creatinine of 1.67 baseline is around 1.3. She is on diuretics at home previous echo Showed normal ejection fraction no mention of any diastolic dysfunction. has mildly elevated troponin secondary to renal failure and hypoxemia 2 more sets of troponins will be obtained. Patient did not receive his Covid vaccine. 09/22/2020 Patient had weakness and facial droop on the left side patient had a CT of the pain and CT angiogram which was negative. Patient was not given TPA patient exam is limited because of his respiratory distress does appear to have facial droop on the left side patient is on 100% nonrebreather along with 15 L diffuse crackles on lung exam patient is presently DO NOT RESUSCITATE patient appears to be in significant respiratory distress hypoxemic patient is presently on remde sivir and Decadron. Patient is able to make decision was discussed with the patient regarding his overall goals of care. Patient is agreeable with hospice and that's probably the most appropriate management. Patient will need intubation which is the next and because of his respiratory distress unable to oxygenate and low saturations in spite of being on 100% nonrebreather and 15 L of high flow nasal cannula oxygen and patient is in significant respiratory distress and sting his age and his other chronic medical problems a possibility of him getting out of the ventilator with the Covid 19 is extremely low because of which I discussed the same thing with the patient as well as daughter were agreeable and comfort care and hospice patient will be switched to hospice all other medications will be discontinued. 09/23/2020 Patient continues on comfort care with family at the bedside and continues to be on a morphine drip along with nonrebreather per family's request to continue and oxygen saturation is 71%. Continue with comfort care measures and will continue to monitor. Objective - Vital Signs Vital signs: Vital Signs Temp 100.7 F H 09/22/20 13:56 Pulse 100 09/23/20 09:08 Resp 16 09/23/20 09:08 BP 106/61 09/23/20 06:00 Pulse Ox 71 L 09/23/20 09:08 Intake & Output 09/22/20 09/23/20 09/23/20 18:59 06:59 18:59 Intake Total 16.092 45.858 Output Total 780 1600 Balance -780 -1583.908 45.858 Intake: Intake, IV Titration 16.092 45.858 Amount Morphine Sulfate (100 mg/ 16.092 45.858 2 ml) 100 mg In Sodium Chloride 0.9% 100 ml @ 1 MG/HR 1.02 mls/hr IV . Q24H [facility] Rx#:[id number] Output: Urine 780 1600 Other: Voiding Method Indwelling Catheter Indwelling Catheter Indwelling Catheter # Bowel Movements 3 - Exam GENERAL: The patient is asleep and unarousable, is in no acute respiratory distress obtained on nonrebreather per patient's family request HEENT: Pupils are round and equally reacting to light. EOMI. No scleral icterus. No conjunctival pallor. Normocephalic, atraumatic. No pharyngeal erythema. No thyromegaly. CARDIOVASCULAR: S1 and S2 present. No murmurs, rubs, or gallops. PULMONARY: Diffuse bilateral crackles ABDOMEN: Soft, nontender, nondistended, normoactive bowel sounds. No palpable organomegaly. MUSCULOSKELETAL: No joint swelling or deformity. EXTREMITIES: No cyanosis, clubbing, or pedal edema. NEUROLOGICAL: Focal weakness on the left side of the body SKIN: No rashes. - Labs CBC & Chem 7: 09/22/20 05:53 09/22/20 05:53 Labs: Abnormal Lab Results - Last 24 Hours (Table) 09/22/20 09/22/20 09/22/20 Range/Units 11:34 11:44 12:01 POC Glucose (mg/dL) 67 L 62 L 181 H (75-99) mg/dL Assessment and Plan Assessment: -Acute hypoxic respiratory failure: Secondary to covid 19 pneumonia. Patient was on Covid cocktail along with Remdesivir and continued to deteriorate with significant respiratory distress and family has made the patient comfort care measures only. -Acute ischemic stroke involving right middle MCA territory and weakness in the left side of the body. 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 Prognosis remains poor and will continue with comfort care measures only. Family at the bedside.
--- NOTE | 2020-09-24 12:10 | P.DS ---
Providers Date of admission: 09/21/20 11:16 Expected date of discharge: 09/24/20 Attending physician: Rubin Heredia Consults: 09/21/20 11:15 Consult Physician Routine Consulting Provider: Branden Yanez Consult Reason/Comments: covid, hypoxia Do you want consulting provider notified?: Yes 09/21/20 18:15 Consult Physician Routine Consulting Provider: Lupillo Gates Consult Reason/Comments: obstructive prostate Do you want consulting provider notified?: Yes Primary care physician: Tamia Rivera Hospital Course: Final diagnosis -Acute hypoxic respiratory failure: Secondary to covid 19 pneumonia. Patient was on Covid cocktail along with Remdesivir and continued to deteriorate with significant respiratory distress and family has made the patient comfort care m easures only. -Acute ischemic stroke involving right middle MCA territory and weakness in the left side of the body. 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 According to nursing documentation, time of 1830 Preliminary cause of COVID-19 pneumonia Hospital course This is an 89-year-old male was recently admitted with shortness of breath and was found to be COVID-19 positive along with some acute kidney injury and was being closely monitored. Patient's respiratory status continued to deteriorate. Patient also had stroke workup as patient continued of weakness and was found have a facial droop on the left side and CT of the brain was negative. patient did receive Remdesivir along with dexamethasone and vitamin C and zinc supplements and continued to have no improvement. Discussion was had about CODE STATUS and family was discussed with extensively and wishing to make the patient comfort care with hospice. Patient was signed on inpatient with [facility] and made comfortable with comfort measures only. Patient with family at the bedside with nursing reports of time of 1830. Please refer to previous dictations for further HPI Patient Condition at Discharge: Fair Plan - Discharge Summary Discharge Rx Participant: No New Discharge Prescriptions: No Action Simvastatin [Zocor] 10 mg PO HS Potassium Chloride ER [K-Dur 20] 20 meq PO BID calcitrioL [Calcitriol] 0.5 mcg PO GALO Metoprolol Succinate (ER) [Toprol XL] 25 mg PO QAM calcitrioL [Rocaltrol] 0.25 mcg PO MOTUWETHFRSA guaiFENesin [Mucinex] 600 mg PO BID Insuln Asp Prt/Insulin Aspart [NovoLOG MIX 70-30 VIAL] 15 unit SQ W/BRKFST Insuln Asp Prt/Insulin Aspart [NovoLOG MIX 70-30 VIAL] 10 unit SQ W/SUPPER Acetaminophen Tab [Tylenol] 650 mg PO Q6HR PRN tab PRN Reason: Mild Pain Or Fever > 100.5 Vit C/E/Zn/Coppr/Lutein/Zeaxan [Preservision Areds 2 Softgel] 1 cap PO DIRECTED Furosemide [Lasix] 40 mg PO BID Ferrous Sulfate [Iron] 325 mg PO DAILY Cetirizine HCl [Zyrtec] 10 mg PO DAILY Ergocalciferol (Vitamin D2) [Drisdol (50,000 Iu)] 1,250 mcg PO Q15D Tamsulosin HCl [Flomax] 0.4 mg PO BID Clindamycin HCl 300 mg PO TID Erythromycin Ophth Oint [Romycin Ophth Oint] 1 applic BOTH EYES QID Aspirin 81 mg PO DIRECTED Discharge Medication List Potassium Chloride ER [K-Dur 20] 20 meq PO BID 05/27/15 [History] Simvastatin [Zocor] 10 mg PO HS 05/27/15 [History] Metoprolol Succinate (ER) [Toprol XL] 25 mg PO QAM 07/31/18 [History] calcitrioL [Calcitriol] 0.5 mcg PO GALO 07/31/18 [History] calcitrioL [Rocaltrol] 0.25 mcg PO MOTUWETHFRSA 07/31/18 [History] Insuln Asp Prt/Insulin Aspart [NovoLOG MIX 70-30 VIAL] 10 unit SQ W/SUPPER 06/14/20 [History] Insuln Asp Prt/Insulin Aspart [NovoLOG MIX 70-30 VIAL] 15 unit SQ W/BRKFST 06/14/20 [History] guaiFENesin [Mucinex] 600 mg PO BID 06/14/20 [History] Acetaminophen Tab [Tylenol] 650 mg PO Q6HR PRN tab 06/16/20 [Rx] Cetirizine HCl [Zyrtec] 10 mg PO DAILY 09/17/20 [History] Ergocalciferol (Vitamin D2) [Drisdol (50,000 Iu)] 1,250 mcg PO Q15D 09/17/20 [History] Ferrous Sulfate [Iron] 325 mg PO DAILY 09/17/20 [History] Furosemide [Lasix] 40 mg PO BID 09/17/20 [History] Tamsulosin HCl [Flomax] 0.4 mg PO BID 09/17/20 [History] Vit C/E/Zn/Coppr/Lutein/Zeaxan [Preservision Areds 2 Softgel] 1 cap PO DIRECTED 09/17/20 [History] Aspirin 81 mg PO DIRECTED 09/21/20 [History] Clindamycin HCl 300 mg PO TID 09/21/20 [History] Erythromycin Ophth Oint [Romycin Ophth Oint] 1 applic BOTH EYES QID 09/21/20 [History] Follow up Appointment(s)/Referral(s): Nicole Cantrell MD [Primary Care Provider] - 1-2 days Discharge Disposition: - Preliminary Cause of Preliminary Cause of : COVID-19 pneumonia
== END 2020-09-23 20:00 | disposition expired | DRG 871 ==
LOC: EC 09:05 → 4SSUR 11:16
PROVIDERS: ADMIT Internal Medicine; ATTEND Internal Medicine
PROC: XW033E5 Introduction of Remdesivir Anti-infective into Peripheral Vein, Percutaneous Approach, New Technology Group 5 (ICD-10-PCS; principal; 2020-09-21)
PROC: 5A0945A Assistance with Respiratory Ventilation, 24-96 Consecutive Hours, High Flow/Velocity Cannula (ICD-10-PCS; 2020-09-21)
DX: A41.89 Other specified sepsis (principal); U07.1 COVID-19; J12.82 Pneumonia due to coronavirus disease 2019; I63.9 Cerebral infarction, unspecified; J80 Acute respiratory distress syndrome; N17.9 Acute kidney failure, unspecified; C79.9 Secondary malignant neoplasm of unspecified site; N13.8 Other obstructive and reflux uropathy; J44.0 Chronic obstructive pulmonary disease with (acute) lower respiratory infection; D63.1 Anemia in chronic kidney disease; E11.649 Type 2 diabetes mellitus with hypoglycemia without coma; E11.319 Type 2 diabetes mellitus with unspecified diabetic retinopathy without macular edema; E11.22 Type 2 diabetes mellitus with diabetic chronic kidney disease; E11.65 Type 2 diabetes mellitus with hyperglycemia; N18.30 Chronic kidney disease, stage 3 unspecified; Z79.4 Long term (current) use of insulin; Z66 Do not resuscitate; Z51.5 Encounter for palliative care; N40.1 Benign prostatic hyperplasia with lower urinary tract symptoms; R29.703 NIHSS score 3; D50.9 Iron deficiency anemia, unspecified; K21.9 Gastro-esophageal reflux disease without esophagitis; E78.5 Hyperlipidemia, unspecified; L08.9 Local infection of the skin and subcutaneous tissue, unspecified; R33.8 Other retention of urine; M19.90 Unspecified osteoarthritis, unspecified site; G47.33 Obstructive sleep apnea (adult) (pediatric); Z79.82 Long term (current) use of aspirin; Z79.899 Other long term (current) drug therapy; Z90.89 Acquired absence of other organs; Z90.49 Acquired absence of other specified parts of digestive tract; Z87.19 Personal history of other diseases of the digestive system; Z98.42 Cataract extraction status, left eye; Z98.41 Cataract extraction status, right eye; Z87.81 Personal history of (healed) traumatic fracture; Z85.46 Personal history of malignant neoplasm of prostate; Z95.0 Presence of cardiac pacemaker; Z86.73 Personal history of transient ischemic attack (TIA), and cerebral infarction without residual deficits; Z98.890 Other specified postprocedural states; Z88.1 Allergy status to other antibiotic agents; Z88.8 Allergy status to other drugs, medicaments and biological substances; Z91.018 Allergy to other foods; Z80.1 Family history of malignant neoplasm of trachea, bronchus and lung; Z82.3 Family history of stroke; Z80.8 Family history of malignant neoplasm of other organs or systems
CPT/HCPCS: 36415; 70450; 70496; 70498; 71045; 80053; 83605; 84484; 85025; 85379; 85610; 85730; 87635; 93005; 94760; 96374; 96375; 99285